=== PATIENT | female | born 1985 | race Caucasian/White ===

== ENCOUNTER → 2018-06-13 18:12 | Outpatient (CLI) | payer MEDICAID, SELFPAY ==
[2018-06-13 19:10] LABS: Basophils % 0.3 % (0.1-2.0); Eosinophils # 0.1 K/mm3 (0.0-0.4); Eosinophils % 1.5 % (0.1-12.0); Hematocrit 38.3 % (37.0-47.0); Hemoglobin 12.4 g/dL (12.2-16.2); Lymphocytes # 1.9 K/mm3 (0.7-4.5); Lymphocytes % 19.6 % (10-50); Mean Corpuscular HGB Conc 32.5 g/dL (31.8-35.4); Mean Corpuscular Hemoglobin 24.5 pg (27.0-31.2); Mean Corpuscular Volume 75.6 fl (81-99); Mean Platelet Volume 6.8 fl (7.4-10.4); Monocytes # 0.3 K/mm3 (0.1-1.0); Monocytes % 2.6 % (1.7-9.3); Neutrophils # 7.4 K/mm3 (1.8-7.8); Neutrophils % 75.9 % (37.0-80.0); Platelet Count 422 K/mm3 (142-424); Red Blood Count 5.07 M/mm3 (4.20-5.40); Red Cell Distribution Width 15.4 % (11.5-17.5); White Blood Count 9.8 K/mm3 (4.8-10.8)
[2018-06-13 19:32] LABS: Alanine Aminotransferase 25 U/L (12-78); Albumin Level 3.3 gm/dL (3.4-5.0); Albumin/Globulin Ratio 0.8 (1.1-1.8); Alkaline Phosphatase 86 U/L (46-116); Anion Gap 12.8 mEq/L (5-15); Aspartate Amino Transferase 11 U/L (15-37); Bilirubin,Total 0.3 mg/dL (0.2-1.0); Blood Urea Nitrogen 14 mg/dL (7-18); Carbon Dioxide 29 mmol/L (21.0-32.0); Chloride 100 mmol/L (98-107); Chol/HDL Ratio 3.6 (1-3.5); Cholesterol 174 mg/dL (140-200); Creatinine,Serum 0.77 mg/dL (0.55-1.02); Estimated Glomerular Filt Rate 86 ml/min (>60); GFR (African American) 104 ML/MIN (>60); Globulin 4.4 gm/dl (1.3-3.2); Glucose 121 mg/dL (74-106); HDL Cholesterol 48 mg/dL (29-89); LDL Cholesterol 90 mg/dL (0-130); Potassium 3.8 mmoL/L (3.5-5.1); Sodium 138 mmol/L (136-145); T4 (Thyroxine) 9.6 ug/dl (4.7-13.3); Total Protein,Serum 7.7 gm/dL (6.4-8.2); Triglycerides 181 mg/dL (30-200); VLDL Cholesterol 36 mg/dL (0-40)
[2018-06-15 08:19] LABS: Vitamin D 25 Hydroxy 16.9 ng/mL (30.0-100.0)
[2018-06-16 19:23] LABS: Ferritin 104 ng/mL (8-388)
[2018-06-18 06:39] LABS: Iron 39 ug/dL (27-159); UIBC 289 ug/dL (131-425)
[2018-06-18 23:01] LABS: Iron Saturation 12 % (15-55)
== END ==
PROVIDERS: Emergency Medicine; Visit Provider Physician Assistant
DX: E03.9 Hypothyroidism, unspecified (principal); R68.89 Other general symptoms and signs
CPT/HCPCS: 80053; 80061; 82652; 82728; 83540; 83550; 84436; 84443; 85025

== ENCOUNTER → 2018-06-19 17:53 | Outpatient (CLI) | payer MEDICAID, SELFPAY ==
[2018-06-19 19:33] LABS: Hemoglobin A1C 5.9 % (0.0-7.0)
== END ==
PROVIDERS: Visit Provider Emergency Medicine
DX: E66.9 Obesity, unspecified (principal); Z83.3 Family history of diabetes mellitus
CPT/HCPCS: 83036

== ENCOUNTER → 2018-07-27 11:01 | Outpatient (CLI) | payer MEDICAID, SELFPAY ==
[2018-07-27 13:07] LABS: Free Thyroxine Index 2.6 ug/dL (5.93-13.13); T4 (Thyroxine) 8.4 ug/dl (4.7-13.3); Triiodothryronine (T3) Uptake 31 % (31-39)
== END ==
PROVIDERS: Visit Provider Nurse Practitioner Obstetrics & Gynecology
DX: E03.9 Hypothyroidism, unspecified (principal)
CPT/HCPCS: 36415; 84436; 84443; 84479

== ENCOUNTER → 2018-11-01 15:40 | Outpatient (CLI) | payer MEDICAID, SELFPAY ==
[2018-11-01 16:14] LABS: Basophils % 0.4 % (0.1-2.0); Eosinophils # 0.2 K/mm3 (0.0-0.4); Hematocrit 37.4 % (37.0-47.0); Hemoglobin 12.3 g/dL (12.2-16.2); Lymphocytes # 1.7 K/mm3 (0.7-4.5); Lymphocytes % 19.8 % (10-50); Mean Corpuscular HGB Conc 32.9 g/dL (31.8-35.4); Mean Corpuscular Hemoglobin 25.7 pg (27.0-31.2); Mean Corpuscular Volume 78.2 fl (81-99); Mean Platelet Volume 6.9 fl (7.4-10.4); Monocytes # 0.2 K/mm3 (0.1-1.0); Monocytes % 2.9 % (1.7-9.3); Neutrophils # 6.3 K/mm3 (1.8-7.8); Neutrophils % 74.8 % (37.0-80.0); Platelet Count 375 K/mm3 (142-424); Red Blood Count 4.78 M/mm3 (4.20-5.40); Red Cell Distribution Width 15.2 % (11.5-17.5); White Blood Count 8.4 K/mm3 (4.8-10.8)
[2018-11-01 17:06] LABS: Hemoglobin A1C 5.9 % (0.0-7.0)
[2018-11-01 17:20] LABS: Alanine Aminotransferase 23 U/L (12-78); Albumin Level 3.1 gm/dL (3.4-5.0); Albumin/Globulin Ratio 0.7 (1.1-1.8); Alkaline Phosphatase 77 U/L (46-116); Anion Gap 13.3 mEq/L (5-15); Aspartate Amino Transferase 14 U/L (15-37); Bilirubin,Total 0.3 mg/dL (0.2-1.0); Blood Urea Nitrogen 15 mg/dL (7-18); Calcium 9.1 mg/dL (8.5-10.1); Carbon Dioxide 29 mmol/L (21.0-32.0); Chloride 101 mmol/L (98-107); Chol/HDL Ratio 3.5 (1-3.5); Cholesterol 154 mg/dL (140-200); Creatinine,Serum 0.72 mg/dL (0.55-1.02); Estimated Glomerular Filt Rate 93 ml/min (>60); GFR (African American) 112 ML/MIN (>60); Globulin 4.4 gm/dl (1.3-3.2); Glucose 137 mg/dL (74-106); HDL Cholesterol 44 mg/dL (29-89); LDL Cholesterol 88 mg/dL (0-130); Potassium 4.3 mmoL/L (3.5-5.1); Sodium 139 mmol/L (136-145); T4 (Thyroxine) 9.9 ug/dl (4.7-13.3); Thyroid Stimulating Hormone 1.89 uIU/ml (0.358-3.740); Total Protein,Serum 7.5 gm/dL (6.4-8.2); Triglycerides 112 mg/dL (30-200); VLDL Cholesterol 22 mg/dL (0-40)
[2018-11-03 11:45] LABS: Vitamin D 25 Hydroxy 33.6 ng/mL (30.0-100.0)
== END ==
PROVIDERS: Visit Provider Physician Assistant
DX: I10 Essential (primary) hypertension (principal); Z83.3 Family history of diabetes mellitus
CPT/HCPCS: 80053; 80061; 82652; 83036; 84436; 84443; 85025

== ENCOUNTER → 2018-11-29 15:35 | Outpatient (CLI) | payer MEDICAID, SELFPAY ==
[2018-11-29 22:01] LABS: Ferritin 141 ng/mL (8-388)
[2018-12-01 09:15] LABS: Iron 40 ug/dL (27-159); UIBC 291 ug/dL (131-425)
[2018-12-01 17:12] LABS: Iron Saturation 12 % (15-55)
== END ==
PROVIDERS: Visit Provider Physician Assistant
DX: D64.9 Anemia, unspecified (principal); D50.9 Iron deficiency anemia, unspecified
CPT/HCPCS: 36415; 82728; 83540; 83550

== ENCOUNTER → 2019-03-30 13:34 | Outpatient (CLI) | payer MEDICAID, SELFPAY | PROVIDERS: PCP Physician Assistant; Visit Provider Physician Assistant | DX: R40.0 Somnolence (principal); G47.33 Obstructive sleep apnea (adult) (pediatric) | CPT/HCPCS: G0399 ==

== ENCOUNTER → 2020-05-14 17:33 | Outpatient (CLI) | payer MEDICAID, SELFPAY ==
[2020-05-14 18:09] LABS: Basophils % 0.4 % (0.1-2.0); Eosinophils # 0.1 K/mm3 (0.0-0.4); Eosinophils % 1.4 % (0.1-12.0); Hematocrit 37.4 % (37.0-47.0); Hemoglobin 12.1 g/dL (12.2-16.2); Lymphocytes # 2.1 K/mm3 (0.7-4.5); Mean Corpuscular HGB Conc 32.2 g/dL (31.8-35.4); Mean Corpuscular Hemoglobin 25.3 pg (27.0-31.2); Mean Corpuscular Volume 78.5 fl (81-99); Mean Platelet Volume 7.2 fl (7.4-10.4); Monocytes # 0.4 K/mm3 (0.1-1.0); Monocytes % 3.6 % (1.7-9.3); Neutrophils # 7.4 K/mm3 (1.8-7.8); Neutrophils % 73.6 % (37.0-80.0); Platelet Count 392 K/mm3 (142-424); Red Blood Count 4.77 M/mm3 (4.20-5.40); Red Cell Distribution Width 15.9 % (11.5-17.5)
[2020-05-14 18:27] LABS: Chloride 99 mmol/L (98-107); Sodium 138 mmol/L (136-145)
[2020-05-14 18:28] LABS: Potassium 4.4 mmoL/L (3.5-5.1)
[2020-05-14 18:30] LABS: Alanine Aminotransferase 24 U/L (12-78); Alkaline Phosphatase 96 U/L (38-126); Anion Gap 13.4 mEq/L (5-15); Aspartate Amino Transferase 24 U/L (14-36); Bilirubin,Total 0.4 mg/dl (0.2-1.3); Blood Urea Nitrogen 15 mg/dl (7-17); Carbon Dioxide 30 mmol/L (22.0-30.0); Estimated Glomerular Filt Rate 82 ml/min (>60); GFR (African American) 99 ML/MIN (>60); Triglycerides 159 mg/dl (30-150); VLDL Cholesterol 32 mg/dL (0-40)
[2020-05-14 18:31] LABS: Albumin/Globulin Ratio 1.1 (1.1-1.8); Calcium 9.8 mg/dl (8.4-10.2); Chol/HDL Ratio 3.7 (1-3.5); Cholesterol 197 mg/dl (140-200); Globulin 3.8 g/dL (1.3-3.2); Glucose 122 mg/dl (74-100); HDL Cholesterol 53 mg/dl (40-60); Total Protein,Serum 7.8 g/dl (6.3-8.2)
[2020-05-14 18:47] LABS: 25-OH Vitamin D, Total 24.4 ng/mL (30-100)
[2020-05-14 19:43] LABS: Direct LDL Cholesterol 115.45 mg/dL (100-129)
[2020-05-14 19:53] LABS: Free T4 (Free Thyroxine) 1.47 ng/dl (0.78-2.19)
[2020-05-14 20:07] LABS: Thyroid Stimulating Hormone 3.81 uIU/mL (0.465-4.68)
[2020-05-14 21:18] LABS: Hemoglobin A1C 6.8 % (4.0-6.0)
== END ==
PROVIDERS: Visit Provider Physician Assistant
DX: E03.9 Hypothyroidism, unspecified (principal); E11.9 Type 2 diabetes mellitus without complications; R68.89 Other general symptoms and signs; E55.9 Vitamin D deficiency, unspecified; Z79.84 Long term (current) use of oral hypoglycemic drugs
CPT/HCPCS: 80053; 80061; 82043; 82306; 83036; 84439; 84443; 85025

== ENCOUNTER → 2020-06-02 14:43 | Outpatient (CLI) | payer MEDICAID, SELFPAY ==
--- NOTE | 2020-06-02 14:43 | US_ITS ---
PROCEDURE: US TRANSVAGINAL CLINICAL INDICATION: abnormal bleeding pelvic pain Prolonged uterine bleeding COMPARISON: CT ABDPELW/O CT ABD PELVIS W/O CONTRAST from 05/16/2016 FINDINGS: UTERUS: 8cm x 5cmx 4cm with a combined endometrial thickness of 5.8mm LEFT OVARY: [id number] with a volume of 4.1ml. RIGHT OVARY: [id number] with a volume of 3.4ml. Images are somewhat limited secondary to patient's body habitus. No cul-de-sac fluid apparent IMPRESSION: Unremarkable pelvic ultrasound. Dictated by: Trevin Pandya MD 06/03/2020 17:15 Trevin Pandya MD in [place] 06/03/2020 17:15
== END ==
PROVIDERS: PCP Physician Assistant; Visit Provider Nurse Practitioner Obstetrics & Gynecology
DX: N93.9 Abnormal uterine and vaginal bleeding, unspecified (principal); N97.0 Female infertility associated with anovulation
CPT/HCPCS: 76830

== ENCOUNTER → 2020-11-26 08:27 | Outpatient (CLI) | payer MEDICAID, SELFPAY ==
[2020-11-27 09:41] LABS: Basophils # 0.1 K/mm3 (0-0.2); Basophils % 0.8 % (0.1-2.0); Eosinophils # 0.1 K/mm3 (0.0-0.4); Eosinophils % 0.7 % (0.1-12.0); Hematocrit 37.4 % (37.0-47.0); Hemoglobin 11.2 g/dL (12.2-16.2); Lymphocytes # 1.5 K/mm3 (0.7-4.5); Lymphocytes % 14.2 % (10-50); Mean Corpuscular HGB Conc 29.9 g/dL (31.8-35.4); Mean Corpuscular Hemoglobin 25.4 pg (27.0-31.2); Mean Platelet Volume 9.8 fl (7.4-10.4); Monocytes # 0.4 K/mm3 (0.1-1.0); Monocytes % 3.9 % (1.7-9.3); Neutrophils # 8.3 K/mm3 (1.8-7.8); Neutrophils % 80.4 % (37.0-80.0); Platelet Count 405 K/mm3 (142-424); Red Blood Count 4.39 M/mm3 (4.20-5.40); Red Cell Distribution Width 17.5 % (11.5-17.5); White Blood Count 10.3 K/mm3 (4.8-10.8)
[2020-11-27 10:16] LABS: Chloride 96 mmol/L (98-107)
[2020-11-27 10:17] LABS: Sodium 140 mmol/L (136-145)
[2020-11-27 10:19] LABS: Alanine Aminotransferase 28 U/L (12-78); Alkaline Phosphatase 101 U/L (38-126); Aspartate Amino Transferase 29 U/L (14-36); Blood Urea Nitrogen 13 mg/dl (7-17); Estimated Glomerular Filt Rate 113 ml/min (>60); GFR (African American) 137 ML/MIN (>60)
[2020-11-27 10:20] LABS: Albumin Level 3.7 g/dl (3.5-5.0); Albumin/Globulin Ratio 1.1 (1.1-1.8); Calcium 9.1 mg/dl (8.4-10.2); Carbon Dioxide 28 mmol/L (22.0-30.0); Chol/HDL Ratio 3.2 (1-3.5); Cholesterol 142 mg/dl (140-200); Globulin 3.4 g/dL (1.3-3.2); Glucose 143 mg/dl (74-100); HDL Cholesterol 44 mg/dl (40-60); Iron 51 ug/dL (37-170); Total Protein,Serum 7.1 g/dl (6.3-8.2); Triglycerides 162 mg/dl (30-150); VLDL Cholesterol 32 mg/dL (0-40)
[2020-11-27 10:23] LABS: Bilirubin,Total 0.1 mg/dl (0.2-1.3)
[2020-11-27 10:31] LABS: Direct LDL Cholesterol 73.19 mg/dL (100-129)
[2020-11-27 10:35] LABS: Total Iron Binding Capacity 315 ug/dL (265-497)
[2020-11-27 10:38] LABS: T4 (Thyroxine) 10.8 ug/dl (5.53-11.0)
[2020-11-27 10:51] LABS: Thyroid Stimulating Hormone 3.31 uIU/mL (0.465-4.68)
[2020-11-27 10:55] LABS: Ferritin 95.3 ng/ml (6.24-137)
[2020-11-27 16:25] LABS: Hemoglobin A1C 7.5 % (4.0-6.0)
== END ==
PROVIDERS: Visit Provider Physician Assistant
DX: E11.9 Type 2 diabetes mellitus without complications (principal); N92.0 Excessive and frequent menstruation with regular cycle; Z79.84 Long term (current) use of oral hypoglycemic drugs
CPT/HCPCS: 80053; 80061; 82728; 83036; 83540; 83550; 84436; 84443; 85025

== ENCOUNTER → 2021-02-13 14:11 | Outpatient (CLI) | payer MEDICAID, SELFPAY ==
[2021-02-13 14:12] LABS: Influenza A, PCR Not Detected (NotDetected); Influenza B, PCR Not Detected (NotDetected)
[2021-02-13 15:50] LABS: Coronavirus 19, PCR Detected (NotDetected)
== END ==
PROVIDERS: Visit Provider Nurse Practitioner Family
DX: U07.1 COVID-19 (principal)
CPT/HCPCS: C9803; U0003; U0005

== ENCOUNTER → 2021-03-17 17:03 | Outpatient (CLI) | payer MEDICAID, SELFPAY ==
[2021-03-17 17:52] LABS: Anion Gap 11.9 mEq/L (5-15); Blood Urea Nitrogen 12 mg/dl (7-17); Calcium 9.4 mg/dl (8.4-10.2); Carbon Dioxide 31 mmol/L (22.0-30.0); Chloride 97 mmol/L (98-107); Estimated Glomerular Filt Rate 95 ml/min (>60); GFR (African American) 115 ML/MIN (>60); Glucose 169 mg/dl (74-100); Potassium 3.9 mmoL/L (3.5-5.1); Sodium 136 mmol/L (136-145)
== END ==
PROVIDERS: Visit Provider Physician Assistant
DX: Z01.818 Encounter for other preprocedural examination (principal)
CPT/HCPCS: 80048

== ENCOUNTER → 2021-03-18 14:15 | Outpatient (CLI) | payer MEDICAID, SELFPAY ==
--- NOTE | 2021-03-18 14:21 | CT_ITS ---
FINAL REPORT CLINICAL HISTORY: s/p COVID, dyspnea, elevated d dimer FINDINGS: Thin section axial CT images of the chest were obtained with contrast. 3D reformatted images were also obtained. This study was performed with techniques to keep radiation doses as low as reasonably achievable (ALARA). Individualized dose reduction techniques using automated exposure control or adjustment of mA and/or kV according to the patient's size were employed. Artifact is noted secondary to patient's body habitus. There is no evidence of pulmonary embolism. There is no evidence of thoracic aortic aneurysm or dissection. There is no evidence of mediastinal or hilar mass or adenopathy. There are mild pulmonary groundglass opacities, may represent residual pneumonia. Note is made of mild scarring. Limited images of the upper abdomen reveal the patient is status post cholecystectomy. IMPRESSION: No evidence of pulmonary embolism. Mild pulmonary groundglass opacities, may represent residual pneumonia. Reviewed, Interpreted and Dictated by Carlin Love III, MD Transcribed by Ayala Lake Authenticated by Carlin Love III, MD on 03/18/2021 04:25:[address] [facility]
== END ==
PROVIDERS: PCP Physician Assistant; Visit Provider Physician Assistant
DX: R06.00 Dyspnea, unspecified (principal)
CPT/HCPCS: 71275; Q9967

== ENCOUNTER 2021-03-20 12:49 | Emergency (ER) | payer MEDICAID, SELFPAY ==
[2021-03-20 12:50] VITALS: BP 175/88; PULSE 93; RESP 18; TEMP 36.7; O2SAT 98; BMI 71.1
--- NOTE | 2021-03-20 14:00 | ECG_ITS ---
APPROVED REPORT Exam: Resting ECG HR:73 bpm ECG Measurements Heart Rate 73 AXES [place] 171 P 32 QRSd 96 QRS 27 QT 353 T 9 QTc 378 Conclusion SINUS RHYTHM NORMAL ECG UNCONFIRMED REPORT Electronically signed by : Asa Yoon MD 03/21/2021 13:48:09
--- NOTE | 2021-03-20 14:17 | HMH.EDGENADL ---
ED Disposition Clinical Impression: Shortness of breath Hypertension Qualifiers: Hypertension type: primary hypertension Qualified Code(s): I10 - Essential (primary) hypertension Disposition: Home, Self-Care Condition on Discharge: Good Additional Instructions: Continue taking your 20 mg of lisinopril daily. Heart rate in the 50s is appropriate. Follow-up with your regular doctor as previously scheduled, and continue your doxycycline as prescribed for pneumonia. Referrals: Monique Saxena PA [Primary Care Provider] - Time of Disposition: 15:18 - Critical Care Critical Care Time: No Attestation: On 03/20/21, the high probability of a clinically significant, sudden or life threatening deterioration of the following system(s) required my full and direct attention, intervention and personal management. The time I documented below is in addition to time spent performing reported procedures but includes the following listed in this critical care notation. Medical Decision Making - Medical Records Medical records reviewed: Yes: I reviewed the patient's medical records. - [place] Inquiry Pt receiving controlled substance: No Vital Signs: 03/20/21 12:50 Temperature 98.1 F Temperature Source Oral Pulse Rate [Right Radial] 93 H Respiratory Rate 18 Blood Pressure [Right Arm] 175/88 H Blood Pressure Mean [Right Arm] 117 Blood Pressure Source [Right Arm] Automatic Cuff Blood Pressure Position [Right Arm] Sitting 02 Sat by Pulse Oximetry 98 Oxygen Delivery Method Room Air - Lab Data Lab results reviewed: Yes: I reviewed the patient's lab results. Lab Results 03/20/21 14:27: WBC 17.8 H, RBC 4.98, Hgb 12.4, Hct 39.0, MCV 78.3 L, MCH 25.0 L, MCHC 31.9, RDW 18.9 H, Plt Count 419, MPV 7.3 L, Neut % (Auto) 85.9 H, Lymph % (Auto) 9.9 L, Kings % (Auto) 3.2, Eos % (Auto) 0.4, Baso % (Auto) 0.6, Neut # (Auto) 15.3 H, Lymph # (Auto) 1.8, Kings # (Auto) 0.6, Eos # (Auto) 0.1, Baso # (Auto) 0.1, Total Counted 100, Neutrophils % (Manual) 76, Band Neutrophils % 1.0, Lymphocytes % (Manual) 21, Monocytes % (Manual) 2, Nucleated RBCs 1, Platelet Estimate Normal, Microcytosis 1+ 03/20/21 14:27: Sodium 139, Potassium 4.1, Chloride 101, Carbon Dioxide 29, Anion Gap 13.1, BUN 20 H D, Creatinine 0.80, Estimated Creat Clear 80, Estimated GFR 81, Est GFR ( Amer) 98, Glucose 88, Calcium 9.5, Total Bilirubin 0.5, AST 35, ALT 36, Alkaline Phosphatase 85, Total Protein 8.2, Albumin 4.3, Globulin 3.9 H, Albumin/Globulin Ratio 1.1 Result diagrams: 03/20/21 14:27 03/20/21 14:27 Orders (Tests/Meds): ORDERS Category Date Time Status ECG Request by /Martin Stat Y 03/20/21 13:51 Ordered Medical Decision Narrative: 35-year-old female who presents to the emergency department for evaluation of bradycardia and hypertension. Patient cut her hypertensive medication in half recently as her PCP advised it may be causing her bradycardia. Had a lengthy discussion with the patient about normal heart rate and blood pressure. I advised that a heart rate of greater than 50 is not concerning, and should not be causing her any problems, especially in the setting of hypertension rather than hypotension. Patient was advised that her lisinopril should not be affecting her heart rate. We advised her to take her second dose while in the emergency department to see if it will improve her blood pressure which has been around 180 systolic. Patient does not complain of headaches, vision changes, chest pain, or worse shortness of breath at baseline associated with this. Given that she had a negative CT PE scan yesterday, and was already started on antibiotics for pneumonia, I do not feel that an extensive work-up is warranted. We will evaluate with an ECG and basic labs including CBC and CMP and recheck her blood pressure and continue to monitor her heart rate. On reevaluation, patient was found to have a normal ECG with normal intervals and normal rhythm
[2021-03-20 14:42] LABS: Basophils # 0.1 K/mm3 (0-0.2); Basophils % 0.6 % (0.1-2.0); Eosinophils # 0.1 K/mm3 (0.0-0.4); Eosinophils % 0.4 % (0.1-12.0); Hemoglobin 12.4 g/dL (12.2-16.2); Lymphocytes # 1.8 K/mm3 (0.7-4.5); Lymphocytes % 9.9 % (10-50); Mean Corpuscular HGB Conc 31.9 g/dL (31.8-35.4); Mean Corpuscular Volume 78.3 fl (81-99); Mean Platelet Volume 7.3 fl (7.4-10.4); Monocytes # 0.6 K/mm3 (0.1-1.0); Monocytes % 3.2 % (1.7-9.3); Neutrophils # 15.3 K/mm3 (1.8-7.8); Neutrophils % 85.9 % (37.0-80.0); Platelet Count 419 K/mm3 (142-424); Red Blood Count 4.98 M/mm3 (4.20-5.40); Red Cell Distribution Width 18.9 % (11.5-17.5); White Blood Count 17.8 K/mm3 (4.8-10.8)
[2021-03-20 14:51] LABS: MANUAL DIFFERENTIAL MANUAL DIFFERENTIAL (MANUAL DIFF)
[2021-03-20 14:56] LABS: Chloride 101 mmol/L (98-107); Potassium 4.1 mmoL/L (3.5-5.1); Sodium 139 mmol/L (136-145)
[2021-03-20 14:59] LABS: Alanine Aminotransferase 36 U/L (12-78); Albumin Level 4.3 g/dl (3.5-5.0); Albumin/Globulin Ratio 1.1 (1.1-1.8); Alkaline Phosphatase 85 U/L (38-126); Anion Gap 13.1 mEq/L (5-15); Aspartate Amino Transferase 35 U/L (14-36); Bilirubin,Total 0.5 mg/dl (0.2-1.3); Blood Urea Nitrogen 20 mg/dl (7-17); Carbon Dioxide 29 mmol/L (22.0-30.0); Creatinine Clearance Estimated 80 mL/min (50-200); Estimated Glomerular Filt Rate 81 ml/min (>60); GFR (African American) 98 ML/MIN (>60); Globulin 3.9 g/dL (1.3-3.2); Total Protein,Serum 8.2 g/dl (6.3-8.2)
[2021-03-20 15:00] LABS: Calcium 9.5 mg/dl (8.4-10.2); Glucose 88 mg/dl (74-100)
[2021-03-20 15:02] LABS: Lymphocytes % 21 % (10-50); Monocytes % 2 % (2-9); Neutrophils % 76 % (42-76); Platelet Estimate Normal; Total Cells Counted 100
[2021-03-20 15:03] LABS: Microcytosis 1+; Nucleated Red Blood Cells 1
[2021-03-20 16:05] VITALS: BP 141/81; PULSE 69; RESP 16; TEMP 36.8; O2SAT 96
== END 2021-03-20 16:05 | disposition home or self-care (01) ==
PROVIDERS: Emergency Provider Emergency Medicine; PCP Physician Assistant
DX: J18.9 Pneumonia, unspecified organism (principal); I10 Essential (primary) hypertension; F41.9 Anxiety disorder, unspecified; E66.01 Morbid (severe) obesity due to excess calories; Z68.45 Body mass index [BMI] 70 or greater, adult; E10.9 Type 1 diabetes mellitus without complications; F41.8 Other specified anxiety disorders; K21.9 Gastro-esophageal reflux disease without esophagitis; Z79.899 Other long term (current) drug therapy
CPT/HCPCS: 36415; 80053; 85007; 85025; 93005; 99282

== ENCOUNTER → 2021-07-13 09:56 | Outpatient (CLI) | payer MEDICAID, SELFPAY ==
[2021-07-13 10:50] VITALS: BP 129/98; BP 157/97; PULSE 76; PULSE 85; RESP 20; O2SAT 98; O2SAT 99
== END ==
PROVIDERS: PCP Physician Assistant; Visit Provider Internal Medicine Pulmonary Disease
DX: R06.09 Other forms of dyspnea (principal)
CPT/HCPCS: 94060; 94618; 94726; 94729

== ENCOUNTER → 2021-08-27 14:16 | Outpatient (CLI) | payer MEDICAID, SELFPAY ==
[2021-08-27 14:33] LABS: Basophils # 0.1 K/mm3 (0-0.2); Basophils % 0.5 % (0.1-2.0); Eosinophils # 0.3 K/mm3 (0.0-0.4); Eosinophils % 2.5 % (0.1-12.0); Hematocrit 32.8 % (37.0-47.0); Hemoglobin 10.9 g/dL (12.2-16.2); Lymphocytes # 2.3 K/mm3 (0.7-4.5); Lymphocytes % 21.1 % (10-50); Mean Corpuscular HGB Conc 33.3 g/dL (31.8-35.4); Mean Corpuscular Hemoglobin 25.2 pg (27.0-31.2); Mean Corpuscular Volume 75.5 fl (81-99); Mean Platelet Volume 6.7 fl (7.4-10.4); Monocytes # 0.4 K/mm3 (0.1-1.0); Monocytes % 3.5 % (1.7-9.3); Neutrophils # 7.8 K/mm3 (1.8-7.8); Neutrophils % 72.4 % (37.0-80.0); Platelet Count 383 K/mm3 (142-424); Red Blood Count 4.35 M/mm3 (4.20-5.40); Red Cell Distribution Width 16.9 % (11.5-17.5); White Blood Count 10.8 K/mm3 (4.8-10.8)
[2021-08-27 15:30] LABS: Alanine Aminotransferase 61 U/L (12-78); Albumin Level 3.7 g/dl (3.5-5.0); Albumin/Globulin Ratio 1.2 (1.1-1.8); Alkaline Phosphatase 74 U/L (38-126); Anion Gap 12.1 mEq/L (5-15); Aspartate Amino Transferase 30 U/L (14-36); Blood Urea Nitrogen 15 mg/dl (7-17); Calcium 9.1 mg/dl (8.4-10.2); Carbon Dioxide 28 mmol/L (22.0-30.0); Chloride 104 mmol/L (98-107); Estimated Glomerular Filt Rate 94 ml/min (>60); GFR (African American) 114 ML/MIN (>60); Globulin 3.2 g/dL (1.3-3.2); Glucose 115 mg/dl (74-100); Magnesium 1.7 mg/dl (1.6-2.3); Potassium 4.1 mmoL/L (3.5-5.1); Sodium 140 mmol/L (136-145); Total Protein,Serum 6.9 g/dl (6.3-8.2)
[2021-08-27 15:32] LABS: Bilirubin,Total < 0.1 mg/dl (0.2-1.3)
[2021-09-03 17:09] LABS: D001-IgE D pteronyssinus <0.10 kU/L (Class 0); E001-IgE Cat Dander <0.10 kU/L (Class 0); E005-IgE Dog Dander <0.10 kU/L (Class 0); E072-IgE Mouse Urine <0.10 kU/L (Class 0); G002-IgE Bermuda Grass <0.10 kU/L (Class 0); G006-IgE Timothy Grass <0.10 kU/L (Class 0); I006-IgE Cockroach, German <0.10 kU/L (Class 0); Immunoglobulin E, Total 359 IU/mL (6-495); M001-IgE Penicillium chrysogen <0.10 kU/L (Class 0); M002-IgE Cladosporium herbarum <0.10 kU/L (Class 0); M003-IgE Aspergillus fumigatus <0.10 kU/L (Class 0); M006-IgE Alternaria alternata <0.10 kU/L (Class 0); T001-IgE Maple/Box Elder <0.10 kU/L (Class 0); T003-IgE Common Silver Birch <0.10 kU/L (Class 0); T006-IgE Cedar, Mountain <0.10 kU/L (Class 0); T007-IgE Oak, White <0.10 kU/L (Class 0); T008-IgE Elm, American <0.10 kU/L (Class 0); T010-IgE Walnut <0.10 kU/L (Class 0); T011-IgE Maple Leaf Sycamore <0.10 kU/L (Class 0); T014-IgE Cottonwood <0.10 kU/L (Class 0); T015-IgE Ash, White <0.10 kU/L (Class 0); T022-IgE Pecan, Hickory <0.10 kU/L (Class 0); T070-IgE White Mulberry <0.10 kU/L (Class 0); W001-IgE Ragweed, Short <0.10 kU/L (Class 0); W011-IgE Thistle, Russian <0.10 kU/L (Class 0); W014-IgE Pigweed, Common <0.10 kU/L (Class 0); W018-IgE Sheep Sorrel <0.10 kU/L (Class 0)
== END ==
PROVIDERS: PCP Nurse Practitioner Family; Visit Provider Internal Medicine Pulmonary Disease
DX: I10 Essential (primary) hypertension (principal)
CPT/HCPCS: 36415; 80053; 82785; 83735; 85025; 86003

== ENCOUNTER → 2021-09-18 13:29 | Outpatient (CLI) | payer MEDICAID, SELFPAY ==
--- NOTE | 2021-09-18 13:36 | US_ITS ---
FINAL REPORT CLINICAL HISTORY: abnormal uterine bleeding FINDINGS: Transvaginal sonographic images of the pelvis were obtained. The uterus measures 8.8 by 4.6 x 3.9 cm. The endometrium measures 10 mm. The right ovary measures 2.9 x 2.4 x 1.7 cm. The left ovary measures 2.4 x 2.2 x 1.7 cm. No adnexal mass is identified. There is no free fluid. IMPRESSION: Unremarkable pelvic ultrasound. Reviewed, Interpreted and Dictated by Carlin Love III, MD Transcribed by Ayala Lake Authenticated and [facility]
[2021-09-18 14:17] LABS: Basophils # 0.1 K/mm3 (0-0.2); Basophils % 0.5 % (0.1-2.0); Eosinophils # 0.2 K/mm3 (0.0-0.4); Eosinophils % 1.3 % (0.1-12.0); Hematocrit 37.2 % (37.0-47.0); Lymphocytes # 2.2 K/mm3 (0.7-4.5); Mean Corpuscular HGB Conc 32.3 g/dL (31.8-35.4); Mean Corpuscular Hemoglobin 24.7 pg (27.0-31.2); Mean Corpuscular Volume 76.4 fl (81-99); Mean Platelet Volume 6.7 fl (7.4-10.4); Monocytes # 0.3 K/mm3 (0.1-1.0); Monocytes % 2.7 % (1.7-9.3); Neutrophils # 9.3 K/mm3 (1.8-7.8); Neutrophils % 77.3 % (37.0-80.0); Platelet Count 365 K/mm3 (142-424); Red Blood Count 4.87 M/mm3 (4.20-5.40); Red Cell Distribution Width 15.9 % (11.5-17.5); White Blood Count 12.1 K/mm3 (4.8-10.8)
[2021-09-18 14:48] LABS: Thyroid Stimulating Hormone 2.58 uIU/mL (0.465-4.68)
== END ==
PROVIDERS: PCP Nurse Practitioner Family; Visit Provider Obstetrics & Gynecology
DX: N93.9 Abnormal uterine and vaginal bleeding, unspecified (principal)
CPT/HCPCS: 36415; 76830; 84443; 85025

== ENCOUNTER → 2021-10-02 13:42 | Outpatient (CLI) | payer MEDICAID, SELFPAY ==
[2021-10-02 14:17] LABS: Basophils # 0.1 K/mm3 (0-0.2); Basophils % 0.7 % (0.1-2.0); Eosinophils # 0.2 K/mm3 (0.0-0.4); Eosinophils % 1.3 % (0.1-12.0); Hematocrit 36.9 % (37.0-47.0); Hemoglobin 11.7 g/dL (12.2-16.2); Lymphocytes # 2.3 K/mm3 (0.7-4.5); Lymphocytes % 17.4 % (10-50); Mean Corpuscular HGB Conc 31.8 g/dL (31.8-35.4); Mean Corpuscular Hemoglobin 25.1 pg (27.0-31.2); Mean Corpuscular Volume 78.8 fl (81-99); Mean Platelet Volume 7.6 fl (7.4-10.4); Monocytes # 0.5 K/mm3 (0.1-1.0); Monocytes % 3.7 % (1.7-9.3); Neutrophils # 10.2 K/mm3 (1.8-7.8); Platelet Count 418 K/mm3 (142-424); Red Blood Count 4.69 M/mm3 (4.20-5.40); Red Cell Distribution Width 17.1 % (11.5-17.5); White Blood Count 13.2 K/mm3 (4.8-10.8)
== END ==
PROVIDERS: PCP Physician Assistant; Visit Provider Nurse Practitioner Obstetrics & Gynecology
DX: Z01.812 Encounter for preprocedural laboratory examination (principal); Z20.822 Contact with and (suspected) exposure to COVID-19; N92.0 Excessive and frequent menstruation with regular cycle; N93.9 Abnormal uterine and vaginal bleeding, unspecified
CPT/HCPCS: 36415; 85025; C9803; U0003; U0005

== ENCOUNTER 2021-10-05 06:06 | Day surgery (SDC) | payer MEDICAID, SELFPAY ==
[2021-10-01 10:01] VITALS: BMI 70.1
[2021-10-05] VITALS (11 sets, daily range): BP systolic 133–152; BP diastolic 53–82; PULSE 58–75; RESP 10–18; TEMP 36.2–36.4; O2SAT 92–97
[2021-10-05 06:30] LABS: Urine Pregnancy, HCG Qual. Negative (Negative)
[2021-10-05 06:52] LABS: POC Glucose,Bedside 108 (70-110)
--- NOTE | 2021-10-05 07:17 | P.PN_ITS ---
[facility] Anesthesia Checklist - Patient Identification Patient Identification: Arm Band - Structural Data Admitted From: Home Planned Operative Procedure/s: Hysteroscopy, D&C, Novasure/Myosure Ablation Consent for Planned Operative Procedure(s) Verified: Yes Verified Documents: Surgical Consent, History and Physical - NPO Status Verified Time NPO: 00:00 - Additional verifications Anesthesia Reactions: No Hx Blood Transfusions: No Blood Transfusion Reaction: No - Airway Assessment C-Spine Mobility Assessed: Yes (mp2) TMJ Mobility Assessed: Yes Dentition: Good Dentition - Neurological Assessment Level of Consciousness: Awake, Alert - Anesthesia Plan Anesthesia Risk discussed: Yes Anesthesia Plan: Verified ASA Class: III Anesthesia Type: General [facility] History I have reviewed the patient's past medical history: Yes Medical History: Reports:: Anxiety, Asthma, Depression, Diabetes Mellitus Type 2, Gastroesophageal Reflux Disease(GERD), Hypertension, Migraine Denies:: Cancer, Diabetes Mellitus Type 1, Internal Pacemaker, MRSA, Seizures *Have you ever received a pneumonia vaccine?: No *Have you received a flu vaccine this season?: Yes Other Medical History: Reports: Anemia, Sinus Problems, Thyroid Disease. Denies: Blood Transfusion Reaction Anesthesia experience/problems:: nac Laterality Cases: Bilateral: Other Other Surgeries: Yes: Cholecystectomy, , EGD, Tubal Ligation, Other. No: Pacemaker Amputation: No Fractures: No - *Social History Last grade of school completed: High school graduate Smoking Status: Never smoker Alcohol Intake: never Alcohol Intake Frequency:: other Substance Use Type: denies use *Occupational Status:: disabled Housing: apartment Household Members: family *Travel in the last 8 weeks: None - Psychiatric History Pschychiatric History:: Reports:: Anxiety, Depression Family Hx:: Diabetes, Hypertension, Heart Attack, Kidney Disease [employer] history: Additional [employer] History
--- NOTE | 2021-10-05 09:12 | P.PN_ITS ---
[facility] Anesthesia Record Part I Intake, IV Amount: 900 Estimated blood loss (mL): 5 Urine output (mL): 0 Blood Pressure: 133/65 SaO2: 96 Pulse Rate: 75 Respiratory Rate: 10 Temperature: 97.3 F Patient is:: Awake Stable to PACU at:: 09:13
--- NOTE | 2021-10-05 09:12 | HMH.OPNOTE ---
Date of procedure: 10/05/21 Pre-op Diagnosis:: 1. Encounter for gynecological examination with abnormal finding 2. Lichen sclerosus of vulva 3. Menometrorrhagia 4. Abnormal uterine bleeding 5. Morbid obesity with BMI of 60.0-69.9, adult Post-op Diagnosis:: 1. Encounter for gynecological examination with abnormal finding 2. Lichen sclerosus of vulva 3. Menometrorrhagia 4. Abnormal uterine bleeding 5. Morbid obesity with BMI of 60.0-69.9, adult 6. Endometrial polyp Procedure performed:: 1. Hysteroscopy 2. D&C with Myosure 3. Myosure polypectomy 4. Vulvar punch biopsy x 2 Surgeon:: Romina Villaseñor DO Anesthesia: FANNY Estimated blood loss (mL): 0 Clinical Note:: Ms Jane Nugent is a 36 yo P2013 who presents to [facility] for scheduled procedure. She complains of abnormal uterine bleeding. She states periods have been heavy and abnormal for a long time. She complains of bleeding for months straight. The bleeding alternates from light to heavy but only stops while taking 7 days of Norethindrone. After course of Norethindrone the bleeding returns. She is tired of bleeding. She was on Depo Provera in the past and it caused weight gain. She said she has tried combined OCPs in the past and she did not tolerate them. She admits to vulvar itching for the past year. She admits it has been getting worse over the past year. She has been prescribed fungal creams which helps a little with the itch but does get rid of the problem. Operative findings:: Unable to access pelvis on bimanual exam secondary to patient's body habitus. On hysteroscopic exam bilateral tubal ostia easily visualized. Grossly normal appearing scant endometrial tissue. Endometrial polyp present. On vulvar exam, bilateral labia majora well demarcated white wrinkled plaques that extend to outside of introitus, perineum and anus with telangiectasia and erosions. Some scarring starting with loss of archictecturel Operative note:: Risks, benefits and alternatives were discussed with the patient. Risks include but are not limited to bleeding, infection, uterine perforation and VTE. Patient voiced understanding and agreed to proceed. She was wheeled back to the operating room and placed under general anesthesia without difficulty. She was placed in dorsal lithotomy position and prepped and draped in the normal sterile fashion. Straight catheter was used to drain the bladder. A bimanual exam was performed. A weighted Auvard was placed in the vaginal vault. Single tooth tenaculum was placed on anterior lip of the cervix. Uterus sounded to 12. Sequential Jorge dilators were used to dilate the cervical os. Hysteroscope was inserted through the cervix without difficulty. Endometrial cavity was evaluated. See findings above. Pictures were taken. Myosure was inserted through the hysteroscope. Myosure curettage was performed per protocol in a 360 degree fashion under direct visualization. A scant amount of tissue was obtained. Myosure was used per protocol to form polypectomy. Pictures were taken. Hysteroscope with Myosure was removed. Cervical length was measured with removal of hysteroscope. Uterine cavity measured 4.0. Novasure inserted. Cavity width < 2.5. Novasure device unable to ablate secondary to small cavity size. Instruments were removed from the vagina. Tenaculum site was noted to be hemostatic. 4 mm punch biopsy was performed on right perineum and second 4 mm punch biopsy was performed on left labia majora. Silver nitrate was used on base of excision. 2-0 Vicryl suture was used to reapproximate the skin. Hemostasis was noted. Patient was awaken from anesthesia without difficulty. She was transported to recovery room in stable condition. Patient will be discharged home when awake and ambulating. She was given postop instructions as well as instructions to follow-up in the office in 2 weeks. Condition: stable Disposition: same day Specimens:: 1. Endometri
[2021-10-05 09:20] LABS: POC Glucose,Bedside 113 (70-110)
--- NOTE | 2021-10-05 10:17 | SUR.PHASEII ---
Pt is wanting to go home without pain medicine as Dr. Villaseñor has not returned call concerning pain medcine. Pt says pain is tolerable.
--- NOTE | 2021-10-05 13:13 | HMH.ANESII ---
[facility] Anesthesia Record Part II Discharge Time: 09:33 Destination: Surgical Day Care (OP Surgery) PACU nurse assessment reviewed?: Yes Patient Condition:: Good Anesthesia Complications:: None Swallowing reflex intact?: Yes Cyanosis?: No Blood Pressure: 133/69 Pulse Rate: 62 Temperature: 97.6 F Mental Status: Alert & Oriented Pain level:: 4 Nausea and/or vomitting:: None Intake, IV Amount: 0
== END 2021-10-05 10:27 | disposition home or self-care (01) ==
LOC: OR 06:09
PROVIDERS: PCP Physician Assistant; Visit Provider Obstetrics & Gynecology
PROC: (CPT 58558; principal; 2021-10-05 07:30)
DX: Z01.411 Encounter for gynecological examination (general) (routine) with abnormal findings (principal); N90.4 Leukoplakia of vulva; N92.1 Excessive and frequent menstruation with irregular cycle; E66.01 Morbid (severe) obesity due to excess calories; K22.81 Esophageal polyp; E11.9 Type 2 diabetes mellitus without complications; Z68.44 Body mass index [BMI] 60.0-69.9, adult; Z79.899 Other long term (current) drug therapy
CPT/HCPCS: 58558; 56605; 56606; 81025; 82962; J2405

== ENCOUNTER → 2021-10-13 06:56 | Outpatient (CLI) | payer MEDICAID, SELFPAY ==
[2021-10-13 19:14] LABS: Basophils # 0.1 K/mm3 (0-0.2); Basophils % 0.5 % (0.1-2.0); Eosinophils # 0.2 K/mm3 (0.0-0.4); Hemoglobin 11.7 g/dL (12.2-16.2); Lymphocytes # 2.5 K/mm3 (0.7-4.5); Lymphocytes % 15.7 % (10-50); Mean Corpuscular HGB Conc 31.8 g/dL (31.8-35.4); Mean Corpuscular Hemoglobin 25.3 pg (27.0-31.2); Mean Corpuscular Volume 79.7 fl (81-99); Mean Platelet Volume 7.4 fl (7.4-10.4); Monocytes # 0.5 K/mm3 (0.1-1.0); Monocytes % 3.3 % (1.7-9.3); Neutrophils # 12.4 K/mm3 (1.8-7.8); Neutrophils % 79.6 % (37.0-80.0); Platelet Count 452 K/mm3 (142-424); Red Blood Count 4.64 M/mm3 (4.20-5.40); White Blood Count 15.6 K/mm3 (4.8-10.8)
[2021-10-13 19:17] LABS: MANUAL DIFFERENTIAL MANUAL DIFFERENTIAL (MANUAL DIFF)
[2021-10-13 19:24] LABS: Alanine Aminotransferase 24 U/L (12-78); Albumin Level 3.8 g/dl (3.5-5.0); Albumin/Globulin Ratio 1.1 (1.1-1.8); Alkaline Phosphatase 110 U/L (38-126); Anion Gap 14.3 mEq/L (5-15); Aspartate Amino Transferase 22 U/L (14-36); Bilirubin,Total 0.2 mg/dl (0.2-1.3); Blood Urea Nitrogen 13 mg/dl (7-17); Calcium 9.3 mg/dl (8.4-10.2); Carbon Dioxide 30 mmol/L (22.0-30.0); Chloride 98 mmol/L (98-107); Chol/HDL Ratio 3.6 (1-3.5); Cholesterol 158 mg/dl (140-200); Estimated Glomerular Filt Rate 81 ml/min (>60); GFR (African American) 98 ML/MIN (>60); Globulin 3.4 g/dL (1.3-3.2); Glucose 68 mg/dl (74-100); HDL Cholesterol 44 mg/dl (40-60); Potassium 4.3 mmoL/L (3.5-5.1); Sodium 138 mmol/L (136-145); Total Protein,Serum 7.2 g/dl (6.3-8.2); Triglycerides 91 mg/dl (30-150); VLDL Cholesterol 18 mg/dL (0-40)
[2021-10-13 19:41] LABS: 25-OH Vitamin D, Total 61.9 ng/mL (30-100)
[2021-10-13 19:55] LABS: Thyroid Stimulating Hormone 1.79 uIU/mL (0.465-4.68)
[2021-10-13 20:14] LABS: Vitamin B12 723 pg/mL (239-931)
[2021-10-13 23:04] LABS: Eosinophils % 1 % (0-3); Lymphocytes % 16 % (10-50); Monocytes % 1 % (2-9); Neutrophils % 82 % (42-76); Total Cells Counted 100
[2021-10-13 23:05] LABS: Hypochromasia 1+; Microcytosis 1+; Platelet Estimate Slight Increase
[2021-10-15 08:46] LABS: Direct LDL Cholesterol 78 mg/dL (100-129)
== END ==
PROVIDERS: PCP Physician Assistant; Visit Provider Physician Assistant
DX: E11.9 Type 2 diabetes mellitus without complications (principal); E66.01 Morbid (severe) obesity due to excess calories; Z68.44 Body mass index [BMI] 60.0-69.9, adult; Z79.84 Long term (current) use of oral hypoglycemic drugs; Z79.899 Other long term (current) drug therapy
CPT/HCPCS: 80053; 80061; 82306; 82607; 83036; 84443; 85007; 85025

== ENCOUNTER → 2021-11-16 10:07 | Outpatient (CLI) | payer MEDICAID, SELFPAY ==
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
[2021-11-16 20:12] LABS: Basophils # 0.1 K/mm3 (0-0.2); Basophils % 0.4 % (0.1-2.0); Eosinophils # 0.1 K/mm3 (0.0-0.4); Eosinophils % 1.1 % (0.1-12.0); Hematocrit 37.7 % (37.0-47.0); Lymphocytes # 1.9 K/mm3 (0.7-4.5); Lymphocytes % 15.8 % (10-50); Mean Corpuscular HGB Conc 31.9 g/dL (31.8-35.4); Mean Corpuscular Hemoglobin 25.6 pg (27.0-31.2); Mean Corpuscular Volume 80.3 fl (81-99); Mean Platelet Volume 8.2 fl (7.4-10.4); Monocytes # 0.4 K/mm3 (0.1-1.0); Monocytes % 3.5 % (1.7-9.3); Neutrophils # 9.4 K/mm3 (1.8-7.8); Neutrophils % 79.1 % (37.0-80.0); Platelet Count 421 K/mm3 (142-424); Red Cell Distribution Width 17.2 % (11.5-17.5); White Blood Count 11.9 K/mm3 (4.8-10.8)
[2021-11-16 20:49] LABS: Alanine Aminotransferase 21 U/L (12-78); Albumin Level 3.9 g/dl (3.5-5.0); Albumin/Globulin Ratio 1.2 (1.1-1.8); Alkaline Phosphatase 112 U/L (38-126); Anion Gap 14.5 mEq/L (5-15); Aspartate Amino Transferase 20 U/L (14-36); Bilirubin,Total 0.1 mg/dl (0.2-1.3); Blood Urea Nitrogen 18 mg/dl (7-17); Calcium 9.2 mg/dl (8.4-10.2); Carbon Dioxide 32 mmol/L (22.0-30.0); Chloride 95 mmol/L (98-107); Chol/HDL Ratio 3.5 (1-3.5); Cholesterol 166 mg/dl (140-200); Estimated Glomerular Filt Rate 81 ml/min (>60); GFR (African American) 98 ML/MIN (>60); Globulin 3.2 g/dL (1.3-3.2); Glucose 111 mg/dl (74-100); HDL Cholesterol 47 mg/dl (40-60); Magnesium 1.6 mg/dl (1.6-2.3); Potassium 4.5 mmoL/L (3.5-5.1); Sodium 137 mmol/L (136-145); Total Protein,Serum 7.1 g/dl (6.3-8.2); Triglycerides 113 mg/dl (30-150); VLDL Cholesterol 23 mg/dL (0-40)
[2021-11-16 21:00] LABS: Direct LDL Cholesterol 87.73 mg/dL (100-129)
[2021-11-16 21:09] LABS: 25-OH Vitamin D, Total 30.9 ng/mL (30-100)
[2021-11-16 21:20] LABS: Thyroid Stimulating Hormone 2.69 uIU/mL (0.465-4.68)
[2021-11-16 21:39] LABS: Vitamin B12 625 pg/mL (239-931)
[2021-11-16 21:54] LABS: Hemoglobin A1C 5.5 % (4.0-6.0)
== END ==
PROVIDERS: PCP Physician Assistant; Visit Provider Physician Assistant
DX: L03.316 Cellulitis of umbilicus (principal); M79.605 Pain in left leg; I82.402 Acute embolism and thrombosis of unspecified deep veins of left lower extremity; R25.2 Cramp and spasm; R73.09 Other abnormal glucose; E66.01 Morbid (severe) obesity due to excess calories; Z68.44 Body mass index [BMI] 60.0-69.9, adult; B95.7 Other staphylococcus as the cause of diseases classified elsewhere
CPT/HCPCS: 80053; 80061; 82306; 82607; 83036; 83735; 84443; 85025; 87070; 87077; 87186; 87205; 93971

== ENCOUNTER 2021-11-27 08:43 | Emergency (ER) | payer MEDICAID, SELFPAY ==
[2021-11-27 09:22] VITALS: BP 131/79; PULSE 64; RESP 21; TEMP 37.1; O2SAT 99; BMI 63.4
--- NOTE | 2021-11-27 09:22 | EXP.UTC ---
Discharge Plan Disposition Patient Disposition: Home, Self-Care Condition: Good Prescriptions Prescriptions: No Action ketotifen fumarate 0.025 % (0.035 %) drops 1 drp OPHTHALMIC BID Label Comments: INSTILL 1 DROP IN BOTH EYES TWICE DAILY bacitracin zinc [Antibiotic (bacitracin zinc)] 500 unit/gram ointment 1 applic TP TID Qty: 14 0RF ipratropium-albuterol 0.5 mg-3 mg(2.5 mg base)/3 mL solution for nebulization 3 ml IH QID PRN (Reason: shortness of breath or wheezing) 90 Days Qty: 270 3RF Ozempic 0.25 mg or 0.5 mg(2 mg/1.5 mL) pen injector 0.25 mg SQ WEEKLY Rx Instructions: for 4 doses hydrochlorothiazide 12.5 mg tablet 12.5 mg PO DAILY Qty: 30 2RF Vraylar 1.5 mg capsule 1.5 mg PO DAILY Qty: 30 2RF albuterol sulfate 90 mcg/actuation HFA aerosol inhaler 2 puff IH Q4-6H PRN (Reason: shortness of breath or wheezing) Qty: 8.5 2RF ibuprofen 800 mg tablet 800 mg PO BID PRN (Reason: pain) 30 Days Qty: 60 2RF ferrous sulfate [FeroSul] 325 mg (65 mg iron) tablet See Rx Instructions .ROUTE .COMPLEX Qty: 180 0RF Dose Instruction: TAKE 1 TABLET BY MOUTH TWICE DAILY Rx Instructions: TAKE 1 TABLET BY MOUTH TWICE DAILY ergocalciferol (vitamin D2) 1,250 mcg (50,000 unit) capsule 1,250 mcg PO WEEKLY Qty: 14 3RF Rx Instructions: take 1 capsule by mouth every week for 90 DAYS cholecalciferol (vitamin D3) 25 mcg (1,000 unit) capsule See Rx Instructions PO DAILY Qty: 90 3RF Rx Instructions: TAKE 1 CAPSULE BY MOUTH EVERY DAY lisinopril 40 mg tablet 40 mg PO DAILY Qty: 30 2RF levothyroxine 50 mcg tablet See Rx Instructions .ROUTE .COMPLEX Qty: 90 3RF Dose Instruction: TAKE ONE TABLET BY MOUTH DAILY Rx Instructions: TAKE ONE TABLET BY MOUTH DAILY valacyclovir 500 mg tablet 500 mg PO DAILY PRN (Reason: herpes simplex) Qty: 30 1RF (DME) blood-glucose meter Kit See Rx Instructions .Route DAILY Qty: 1 0RF Rx Instructions: As directed (DME) lancets Misc See Rx Instructions .Route DAILY Qty: 100 5RF Rx Instructions: As directed (DME) blood sugar diagnostic Strip See Rx Instructions .Route DAILY Qty: 50 5RF Rx Instructions: As directed clonazepam 1 mg tablet 1 mg PO Q8H Qty: 90 0RF cyclobenzaprine 10 mg tablet 10 mg PO HS Qty: 90 0RF azithromycin [Zithromax Z-Estevan] 250 mg tablet See Rx Instructions PO .COMPLEX Qty: 6 0RF Rx Instructions: For 250 mg dose pack: take 500 mg today (day 1), then 250 mg for 4 days (days 2-5) PO minocycline 100 mg capsule 100 mg PO BID 10 Days Qty: 20 0RF fluticasone propion-salmeterol 1 EACH blister with device 1 inh IH Q12H Rx Instructions: advair 500 / 50 mcg cetirizine 10 MG tablet 10 mg PO DAILY atorvastatin 10 MG tablet 10 mg PO HS famotidine 40 MG tablet 40 mg PO DAILY clobetasol 15 GM ointment 1 applic TP HS multivitamin,[id number] 1 EACH tablet 1 tab PO DAILY triamcinolone acetonide 16.9 ML aerosol,spray 1 spray NS DAILY Referrals Follow up/Referrals: Monique Saxena PA [Primary Care Provider] - See instructions Activity Restrictions/Add. Instructions Additional Instructions/Restrictions: *Monitor Temp, Over the counter Motrin or Tylenol as directed/as needed Tylenol every 4 hours and Motrin every 6 hours (as long as your family doctor has told you that you can take it) for fever or pain. and straight to ER if unable to lower temp less than 101.0 after medication given *Warm salt water gargles may help to soothe the throat *Throat Lozenges? *Warm fluids like tea with honey may help to soothe the throat? *Sleep elevated *Humidifier/Vaporizer Follow up IMMEDIATELY for new or worsening symptoms or no Noticeable improvement over the next 48-72 hours. 911 for difficulty breathing or swallowing You were tested
[2021-11-27 09:44] VITALS: BP 131/79; PULSE 64; RESP 21; TEMP 37.1; O2SAT 99
== END 2021-11-27 09:45 | disposition home or self-care (01) ==
PROVIDERS: Emergency Provider Nurse Practitioner; PCP Physician Assistant
DX: R06.02 Shortness of breath (principal); R09.89 Other specified symptoms and signs involving the circulatory and respiratory systems; R05.9 Cough, unspecified; R11.0 Nausea; Z20.822 Contact with and (suspected) exposure to COVID-19; I10 Essential (primary) hypertension; N92.1 Excessive and frequent menstruation with irregular cycle; E03.9 Hypothyroidism, unspecified; B00.9 Herpesviral infection, unspecified; M79.10 Myalgia, unspecified site; F43.10 Post-traumatic stress disorder, unspecified; F41.9 Anxiety disorder, unspecified; Z79.1 Long term (current) use of non-steroidal anti-inflammatories (NSAID); Z79.51 Long term (current) use of inhaled steroids; Z79.899 Other long term (current) drug therapy; Z88.2 Allergy status to sulfonamides; Z88.8 Allergy status to other drugs, medicaments and biological substances; Z91.040 Latex allergy status; Z83.3 Family history of diabetes mellitus
CPT/HCPCS: 99212; C9803; G0463; U0003; U0005

== ENCOUNTER → 2021-12-25 11:35 | Outpatient (CLI) | payer MEDICAID, SELFPAY ==
--- NOTE | 2021-12-25 11:54 | XR_ITS ---
FINAL REPORT CLINICAL HISTORY: cough, wheezing, SOB COMPARISON: 12/04/2021 FINDINGS: Two views of the chest were obtained. There is cardiomegaly. The mediastinum is normal. No acute pulmonary abnormality is identified. There is no pneumothorax. The bony thorax is intact. IMPRESSION: No active cardiopulmonary disease. Reviewed, Interpreted and Dictated by Carlin Love III, MD Transcribed by Su Cardoso Authenticated and [facility]
[2021-12-25 13:48] LABS: Adenovirus,PCR Not Detected (NotDetected); Bordetella Pertussis Not Detected (NotDetected); Chlamydophila Pneumoniae, PCR Not Detected (NotDetected); Coronavirus 19, PCR Not Detected (NotDetected); Coronavirus 229E Not Detected (NotDetected); Coronavirus NL63 Not Detected (NotDetected); Coronavirus OC43 Not Detected (NotDetected); Coronovirus HKU1,PCR Not Detected (NotDetected); Human Metapneumovirus Not Detected (NotDetected); Influenza A, PCR Not Detected (NotDetected); Influenza AH1, 2009 Not Detected (NotDetected); Influenza AH1, PCR Not Detected (NotDetected); Influenza AH3,PCR Not Detected (NotDetected); Influenza B, PCR Not Detected (NotDetected); Mycoplasma Pneumoniae, PCR Not Detected (NotDetected); Parainfluenza 1, PCR Not Detected (NotDetected); Parainfluenza 2, PCR Not Detected (NotDetected); Parainfluenza 3, PCR Not Detected (NotDetected); Respiratory Syncytial Virus Not Detected (NotDetected); Rhinovirus/Enterovirus Not Detected (NotDetected)
[2021-12-25 21:21] LABS: Parainfluenza 4, PCR Detected (NotDetected)
== END ==
PROVIDERS: PCP Physician Assistant; Visit Provider Student in an Organized Health Care Education/Training Program
DX: Z20.822 Contact with and (suspected) exposure to COVID-19 (principal); R06.02 Shortness of breath; R05.9 Cough, unspecified; J32.9 Chronic sinusitis, unspecified; J20.4 Acute bronchitis due to parainfluenza virus
CPT/HCPCS: 71046; 87581; 87632; 87798; C9803; U0003; U0005

== ENCOUNTER → 2021-12-29 12:40 | Outpatient (CLI) | payer MEDICAID, SELFPAY ==
[2021-12-29 13:18] LABS: Basophils # 0.1 K/mm3 (0-0.2); Basophils % 0.5 % (0.1-2.0); Eosinophils # 0.2 K/mm3 (0.0-0.4); Eosinophils % 1.5 % (0.1-12.0); Hemoglobin 11.8 g/dL (12.2-16.2); Lymphocytes # 2.3 K/mm3 (0.7-4.5); Lymphocytes % 17.2 % (10-50); Mean Corpuscular HGB Conc 32.8 g/dL (31.8-35.4); Mean Corpuscular Hemoglobin 25.5 pg (27.0-31.2); Mean Corpuscular Volume 77.6 fl (81-99); Mean Platelet Volume 7.3 fl (7.4-10.4); Monocytes # 0.3 K/mm3 (0.1-1.0); Monocytes % 2.4 % (1.7-9.3); Neutrophils # 10.6 K/mm3 (1.8-7.8); Neutrophils % 78.4 % (37.0-80.0); Platelet Count 424 K/mm3 (142-424); Red Blood Count 4.64 M/mm3 (4.20-5.40); White Blood Count 13.5 K/mm3 (4.8-10.8)
[2021-12-29 14:00] LABS: Alanine Aminotransferase 26 U/L (12-78); Albumin Level 3.7 g/dl (3.5-5.0); Albumin/Globulin Ratio 1.2 (1.1-1.8); Alkaline Phosphatase 115 U/L (38-126); Anion Gap 12.8 mEq/L (5-15); Aspartate Amino Transferase 21 U/L (14-36); Bilirubin,Total 0.2 mg/dl (0.2-1.3); Blood Urea Nitrogen 19 mg/dl (7-17); Calcium 9.5 mg/dl (8.4-10.2); Carbon Dioxide 33 mmol/L (22.0-30.0); Chloride 96 mmol/L (98-107); Estimated Glomerular Filt Rate 94 ml/min (>60); GFR (African American) 114 ML/MIN (>60); Glucose 179 mg/dl (74-100); Potassium 3.8 mmoL/L (3.5-5.1); Sodium 138 mmol/L (136-145); Total Protein,Serum 6.7 g/dl (6.3-8.2)
== END ==
PROVIDERS: PCP Physician Assistant; Visit Provider Nurse Practitioner Family
DX: I10 Essential (primary) hypertension (principal); E11.9 Type 2 diabetes mellitus without complications; Z79.84 Long term (current) use of oral hypoglycemic drugs
CPT/HCPCS: 36415; 80053; 85025

== ENCOUNTER → 2022-02-03 08:05 | Outpatient (CLI) | payer MEDICAID, SELFPAY | PROVIDERS: PCP Physician Assistant; Visit Provider Internal Medicine Pulmonary Disease | DX: R06.09 Other forms of dyspnea (principal) | CPT/HCPCS: 94060; 94726; 94729 ==

== ENCOUNTER → 2022-02-17 17:09 | Outpatient (CLI) | payer MEDICAID, SELFPAY | PROVIDERS: PCP Physician Assistant; Visit Provider Physician Assistant | DX: Q89.9 Congenital malformation, unspecified (principal); B95.7 Other staphylococcus as the cause of diseases classified elsewhere | CPT/HCPCS: 87070; 87077; 87186; 87205 ==

== ENCOUNTER → 2022-04-22 11:54 | Outpatient (CLI) | payer MEDICAID, SELFPAY ==
[2022-04-22 14:25] LABS: Basophils # 0.1 K/mm3 (0-0.2); Basophils % 0.4 % (0.1-2.0); Eosinophils # 0.3 K/mm3 (0.0-0.4); Eosinophils % 2.4 % (0.1-12.0); Hematocrit 38.9 % (37.0-47.0); Hemoglobin 12.5 g/dL (12.2-16.2); Lymphocytes # 2.2 K/mm3 (0.7-4.5); Lymphocytes % 16.4 % (10-50); Mean Corpuscular HGB Conc 32.2 g/dL (31.8-35.4); Mean Corpuscular Hemoglobin 25.8 pg (27.0-31.2); Mean Corpuscular Volume 80.3 fl (81-99); Mean Platelet Volume 7.8 fl (7.4-10.4); Monocytes # 0.5 K/mm3 (0.1-1.0); Monocytes % 3.8 % (1.7-9.3); Neutrophils # 10.1 K/mm3 (1.8-7.8); Neutrophils % 76.8 % (37.0-80.0); Platelet Count 451 K/mm3 (142-424); Red Blood Count 4.84 M/mm3 (4.20-5.40); Red Cell Distribution Width 17.1 % (11.5-17.5); White Blood Count 13.1 K/mm3 (4.8-10.8)
[2022-04-22 15:06] LABS: Alanine Aminotransferase 23 U/L (12-78); Albumin Level 4.2 g/dl (3.5-5.0); Albumin/Globulin Ratio 1.2 (1.1-1.8); Alkaline Phosphatase 94 U/L (38-126); Anion Gap 6.1 mEq/L (5-15); Aspartate Amino Transferase 23 U/L (14-36); Bilirubin,Total 0.8 mg/dl (0.2-1.3); Blood Urea Nitrogen 17 mg/dl (7-17); Calcium 9.6 mg/dl (8.4-10.2); Carbon Dioxide 32 mmol/L (22.0-30.0); Chloride 102 mmol/L (98-107); Chol/HDL Ratio 3.1 (1-3.5); Cholesterol 185 mg/dl (140-200); Estimated Glomerular Filt Rate 81 ml/min (>60); GFR (African American) 98 ML/MIN (>60); Globulin 3.5 g/dL (1.3-3.2); Glucose 98 mg/dl (74-100); HDL Cholesterol 60 mg/dl (40-60); Potassium 4.1 mmoL/L (3.5-5.1); Sodium 136 mmol/L (136-145); Total Protein,Serum 7.7 g/dl (6.3-8.2); Triglycerides 127 mg/dl (30-150); VLDL Cholesterol 25 mg/dL (0-40)
[2022-04-22 15:24] LABS: 25-OH Vitamin D, Total 37.2 ng/mL (30-100)
[2022-04-22 15:39] LABS: Thyroid Stimulating Hormone 2.45 uIU/mL (0.465-4.68)
[2022-04-22 16:50] LABS: Hemoglobin A1C 5.8 % (4.0-6.0)
== END ==
PROVIDERS: PCP Physician Assistant; Visit Provider Physician Assistant
DX: R73.03 Prediabetes (principal); R10.11 Right upper quadrant pain; E66.01 Morbid (severe) obesity due to excess calories; Z68.44 Body mass index [BMI] 60.0-69.9, adult; Z79.899 Other long term (current) drug therapy
CPT/HCPCS: 80053; 80061; 82306; 83036; 84443; 85025

== ENCOUNTER → 2022-06-07 16:27 | Outpatient (CLI) | payer MEDICAID, SELFPAY ==
[2022-06-07 17:04] LABS: Basophils # 0.1 K/mm3 (0-0.2); Basophils % 0.4 % (0.1-2.0); Eosinophils # 0.3 K/mm3 (0.0-0.4); Hematocrit 36.9 % (37.0-47.0); Hemoglobin 12.1 g/dL (12.2-16.2); Lymphocytes # 2.4 K/mm3 (0.7-4.5); Lymphocytes % 18.3 % (10-50); Mean Corpuscular HGB Conc 32.8 g/dL (31.8-35.4); Mean Corpuscular Hemoglobin 25.8 pg (27.0-31.2); Mean Corpuscular Volume 78.9 fl (81-99); Mean Platelet Volume 7.1 fl (7.4-10.4); Monocytes # 0.3 K/mm3 (0.1-1.0); Monocytes % 2.6 % (1.7-9.3); Neutrophils # 10.3 K/mm3 (1.8-7.8); Neutrophils % 76.8 % (37.0-80.0); Platelet Count 393 K/mm3 (142-424); Red Blood Count 4.68 M/mm3 (4.20-5.40); Red Cell Distribution Width 16.9 % (11.5-17.5); White Blood Count 13.4 K/mm3 (4.8-10.8)
[2022-06-10 22:35] LABS: D001-IgE D pteronyssinus 0.24 kU/L (Class 0/I); D002-IgE D farinae 0.23 kU/L (Class 0/I); E001-IgE Cat Dander <0.10 kU/L (Class 0); E005-IgE Dog Dander <0.10 kU/L (Class 0); E072-IgE Mouse Urine <0.10 kU/L (Class 0); G002-IgE Bermuda Grass <0.10 kU/L (Class 0); G006-IgE Timothy Grass <0.10 kU/L (Class 0); I006-IgE Cockroach, German 0.16 kU/L (Class 0/I); Immunoglobulin E, Total 485 IU/mL (6-495); M001-IgE Penicillium chrysogen <0.10 kU/L (Class 0); M002-IgE Cladosporium herbarum <0.10 kU/L (Class 0); M003-IgE Aspergillus fumigatus <0.10 kU/L (Class 0); M006-IgE Alternaria alternata <0.10 kU/L (Class 0); T001-IgE Maple/Box Elder <0.10 kU/L (Class 0); T003-IgE Common Silver Birch <0.10 kU/L (Class 0); T006-IgE Cedar, Mountain <0.10 kU/L (Class 0); T007-IgE Oak, White 0.11 kU/L (Class 0/I); T008-IgE Elm, American <0.10 kU/L (Class 0); T010-IgE Walnut <0.10 kU/L (Class 0); T011-IgE Maple Leaf Sycamore <0.10 kU/L (Class 0); T014-IgE Cottonwood 0.15 kU/L (Class 0/I); T015-IgE Ash, White <0.10 kU/L (Class 0); T022-IgE Pecan, Hickory <0.10 kU/L (Class 0); T070-IgE White Mulberry <0.10 kU/L (Class 0); W001-IgE Ragweed, Short <0.10 kU/L (Class 0); W011-IgE Thistle, Russian <0.10 kU/L (Class 0); W014-IgE Pigweed, Common <0.10 kU/L (Class 0); W018-IgE Sheep Sorrel <0.10 kU/L (Class 0)
== END ==
PROVIDERS: PCP Physician Assistant; Visit Provider Internal Medicine Pulmonary Disease
DX: J45.909 Unspecified asthma, uncomplicated (principal)
CPT/HCPCS: 36415; 82785; 85025; 86003

== ENCOUNTER → 2022-06-10 12:25 | Outpatient (CLI) | payer MEDICAID, SELFPAY ==
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
== END ==
PROVIDERS: PCP Physician Assistant; Visit Provider Physician Assistant
DX: M25.512 Pain in left shoulder (principal)
CPT/HCPCS: 73221

== ENCOUNTER 2022-06-13 14:11 | Emergency (ER) | payer MEDICAID, SELFPAY ==
[2022-06-13 14:15] VITALS: BP 147/84; PULSE 74; RESP 18; TEMP 36.7; O2SAT 98; BMI 71.6
--- NOTE | 2022-06-13 14:22 | EXP.UTC ---
Discharge Plan Disposition Patient Disposition: Home, Self-Care Condition: Good Prescriptions Prescriptions: New acyclovir 800 mg tablet 800 mg PO 5XDAY 7 Days Qty: 35 0RF Rx Instructions: while awake; give 5 doses in 24 hours No Action levalbuterol tartrate 45 mcg/actuation HFA aerosol inhaler 2 puff inhalation Q4-6H PRN metformin 500 mg tablet 500 mg PO DAILY albuterol sulfate 90 mcg/actuation HFA aerosol inhaler 2 inh inhalation Q6H PRN (Reason: shortness of breath or wheezing) 90 Days Qty: 8.5 1RF ipratropium-albuterol 0.5 mg-3 mg(2.5 mg base)/3 mL solution for nebulization 3 ml inhalation Q6H PRN (Reason: shortness of breath or wheezing) Qty: 180 3RF fluticasone propion-salmeterol [Advair Diskus] 500-50 mcg/dose blister with device 1 inh inhalation BID Qty: 180 3RF Spiriva with HandiHaler 18 mcg capsule, w/inhalation device 1 cap inhalation DAILY 90 Days Qty: 90 3RF Rx Instructions: puncture 1 cap using device; one dose = 2 inhalations montelukast 10 mg tablet 10 mg PO DAILY 90 Days Qty: 90 3RF ipratropium-albuterol 0.5 mg-3 mg(2.5 mg base)/3 mL solution for nebulization 3 ml IH QID PRN (Reason: shortness of breath or wheezing) 90 Days Qty: 270 3RF valacyclovir 500 mg tablet 500 mg PO PRN Label Comments: TAKE 1 TABLET BY MOUTH DAILY NEEDED FOR HERPES SIMPLEX fluticasone propionate [Flonase Allergy Relief] 50 mcg/actuation spray,suspension 1 spray intranasal BID 30 Days Qty: 9.9 0RF Rx Instructions: administer into each nostril levothyroxine 50 mcg tablet See Rx Instructions .ROUTE .COMPLEX Qty: 90 3RF Dose Instruction: TAKE ONE TABLET BY MOUTH DAILY Rx Instructions: TAKE ONE TABLET BY MOUTH DAILY (DME) blood-glucose meter Kit See Rx Instructions .Route DAILY Qty: 1 0RF Rx Instructions: As directed (DME) lancets Misc See Rx Instructions .Route DAILY Qty: 100 5RF Rx Instructions: As directed (DME) blood sugar diagnostic Strip See Rx Instructions .Route DAILY Qty: 50 5RF Rx Instructions: As directed ferrous sulfate [FeroSul] 325 mg (65 mg iron) tablet See Rx Instructions .ROUTE .COMPLEX Qty: 180 0RF Dose Instruction: TAKE 1 TABLET BY MOUTH TWICE DAILY Rx Instructions: TAKE 1 TABLET BY MOUTH TWICE DAILY (DME) FreeStyle [place] 2 [place] Misc See Rx Instructions .Route Qty: 1 0RF Rx Instructions: As directed (DME) FreeStyle [place]elle 14 Day Sensor Kit See Rx Instructions .Route Qty: 1 5RF Rx Instructions: As directed Ozempic 0.25 mg or 0.5 mg(2 mg/1.5 mL) pen injector 0.5 mg SQ WEEKLY Qty: 1.5 2RF ondansetron 8 mg tablet,disintegrating 8 mg PO Q12H 10 Days Qty: 20 0RF lisinopril 30 mg tablet See Rx Instructions .ROUTE .COMPLEX Qty: 30 0RF Dose Instruction: TAKE 1 TABLET BY MOUTH DAILY Rx Instructions: TAKE 1 TABLET BY MOUTH DAILY nystatin 100,000 unit/gram cream 1 applic topical TID Qty: 30 1RF famotidine 40 mg tablet See Rx Instructions .ROUTE .COMPLEX Qty: 90 0RF Dose Instruction: TAKE 1 TABLET BY MOUTH DAILY Rx Instructions: TAKE 1 TABLET BY MOUTH DAILY multivitamin with iron Tablet See Rx Instructions .ROUTE .COMPLEX Qty: 30 0RF Dose Instruction: TAKE 1 TABLET BY MOUTH EVERY DAY Rx Instructions: TAKE 1 TABLET BY MOUTH EVERY DAY ibuprofen 800 mg tablet See Rx Instructions .ROUTE .COMPLEX Qty: 60 0RF Dose Instruction: TAKE 1 TABLET BY MOUTH TWICE DAILY NEEDED FOR PAIN Rx Instructions: TAKE 1 TABLET BY MOUTH TWICE DAILY NEEDED FOR PAIN hydrochlorothiazide 12.5 mg tablet See Rx Instructions .ROUTE .COMPLEX Qty: 30 0RF Dose Instruction: TAKE 1 TABLET BY MOUTH DAILY Rx Instructions: TAKE 1 TABLET BY MOUTH DAILY clonazepam 1 mg tablet 1 mg PO Q8H Qty: 90 0RF cetirizine 10 MG tablet 10 mg PO D
[2022-06-13 14:26] VITALS: BP 147/84; PULSE 74; RESP 18; TEMP 36.7; O2SAT 98
== END 2022-06-13 14:47 | disposition home or self-care (01) ==
PROVIDERS: Emergency Provider Nurse Practitioner; PCP Physician Assistant
DX: B02.9 Zoster without complications (principal); I10 Essential (primary) hypertension; E03.9 Hypothyroidism, unspecified; E11.9 Type 2 diabetes mellitus without complications; Z79.84 Long term (current) use of oral hypoglycemic drugs; E66.01 Morbid (severe) obesity due to excess calories; Z68.44 Body mass index [BMI] 60.0-69.9, adult
CPT/HCPCS: 99212; 99214; G0463

== ENCOUNTER → 2022-06-15 23:23 | Outpatient (CLI) | payer MEDICAID, SELFPAY ==
[2022-06-15 18:44] LABS: Basophils # 0.1 K/mm3 (0-0.2); Basophils % 0.5 % (0.1-2.0); Eosinophils # 0.1 K/mm3 (0.0-0.4); Eosinophils % 1.2 % (0.1-12.0); Hematocrit 40.4 % (37.0-47.0); Lymphocytes # 2.1 K/mm3 (0.7-4.5); Lymphocytes % 17.3 % (10-50); Mean Corpuscular HGB Conc 32.1 g/dL (31.8-35.4); Mean Corpuscular Volume 80.8 fl (81-99); Mean Platelet Volume 8.6 fl (7.4-10.4); Monocytes # 0.5 K/mm3 (0.1-1.0); Monocytes % 4.4 % (1.7-9.3); Neutrophils # 9.2 K/mm3 (1.8-7.8); Neutrophils % 76.6 % (37.0-80.0); Platelet Count 356 K/mm3 (142-424); Red Cell Distribution Width 16.9 % (11.5-17.5); White Blood Count 12.1 K/mm3 (4.8-10.8)
[2022-06-15 19:06] LABS: Alanine Aminotransferase 21 U/L (12-78); Albumin Level 4.1 g/dl (3.5-5.0); Albumin/Globulin Ratio 1.2 (1.1-1.8); Alkaline Phosphatase 97 U/L (38-126); Anion Gap 15.1 mEq/L (5-15); Aspartate Amino Transferase 23 U/L (14-36); Bilirubin,Total 0.5 mg/dl (0.2-1.3); Blood Urea Nitrogen 16 mg/dl (7-17); Carbon Dioxide 30 mmol/L (22.0-30.0); Chloride 95 mmol/L (98-107); Chol/HDL Ratio 3.4 (1-3.5); Cholesterol 165 mg/dl (140-200); Estimated Glomerular Filt Rate 81 ml/min (>60); GFR (African American) 98 ML/MIN (>60); Globulin 3.4 g/dL (1.3-3.2); Glucose 92 mg/dl (74-100); HDL Cholesterol 49 mg/dl (40-60); Potassium 4.1 mmoL/L (3.5-5.1); Sodium 136 mmol/L (136-145); Total Protein,Serum 7.5 g/dl (6.3-8.2); Triglycerides 150 mg/dl (30-150); VLDL Cholesterol 30 mg/dL (0-40)
[2022-06-15 19:18] LABS: Direct LDL Cholesterol 86.07 mg/dL (100-129)
[2022-06-15 19:40] LABS: Thyroid Stimulating Hormone 2.55 uIU/mL (0.465-4.68)
[2022-06-15 19:49] LABS: Hemoglobin A1C 5.9 % (4.0-6.0)
[2022-06-16 18:12] LABS: 25-OH Vitamin D, Total 25.3 ng/mL (30-100)
== END ==
PROVIDERS: PCP Physician Assistant; Visit Provider Physician Assistant
DX: E03.9 Hypothyroidism, unspecified (principal); E11.9 Type 2 diabetes mellitus without complications; E55.9 Vitamin D deficiency, unspecified; Z79.84 Long term (current) use of oral hypoglycemic drugs; Z79.899 Other long term (current) drug therapy
CPT/HCPCS: 80053; 80061; 82306; 83036; 84443; 85025

== ENCOUNTER → 2022-06-21 12:19 | Outpatient (CLI) | payer MEDICAID, SELFPAY ==
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
== END ==
PROVIDERS: PCP Physician Assistant; Visit Provider Physician Assistant
DX: M25.512 Pain in left shoulder (principal)
CPT/HCPCS: 73200

== ENCOUNTER → 2022-07-09 10:22 | Outpatient (CLI) | payer MEDICAID, SELFPAY ==
--- NOTE | 2022-07-09 10:28 | XR_ITS ---
FINAL REPORT CLINICAL HISTORY: Pt recently had an MRI and CT of her shoulder, pt states her Dr now wants an XR since she never had one. FINDINGS: Left shoulder THREE VIEW FINDINGS: Three views show no evidence of an acute, displaced fracture or dislocation of the visualized bony architecture. The joint spaces appear normal. IMPRESSION: Unremarkable exam. Authenticated and [facility]N
== END ==
PROVIDERS: PCP Physician Assistant; Visit Provider Orthopaedic Surgery
DX: M25.512 Pain in left shoulder (principal)
CPT/HCPCS: 73030

== ENCOUNTER → 2022-07-15 09:16 | Outpatient (CLI) | payer MEDICAID, SELFPAY ==
[2022-07-15 09:47] LABS: Basophils # 0.1 K/mm3 (0-0.2); Basophils % 0.5 % (0.1-2.0); Eosinophils # 0.2 K/mm3 (0.0-0.4); Eosinophils % 1.6 % (0.1-12.0); Hematocrit 37.8 % (37.0-47.0); Hemoglobin 12.1 g/dL (12.2-16.2); Lymphocytes # 2.1 K/mm3 (0.7-4.5); Lymphocytes % 16.7 % (10-50); Mean Corpuscular HGB Conc 32.1 g/dL (31.8-35.4); Mean Corpuscular Hemoglobin 25.4 pg (27.0-31.2); Mean Corpuscular Volume 79.2 fl (81-99); Mean Platelet Volume 7.5 fl (7.4-10.4); Monocytes # 0.4 K/mm3 (0.1-1.0); Monocytes % 2.8 % (1.7-9.3); Neutrophils # 9.6 K/mm3 (1.8-7.8); Neutrophils % 78.3 % (37.0-80.0); Platelet Count 442 K/mm3 (142-424); Red Blood Count 4.78 M/mm3 (4.20-5.40); Red Cell Distribution Width 16.9 % (11.5-17.5); White Blood Count 12.3 K/mm3 (4.8-10.8)
[2022-07-15 10:16] LABS: C-Reactive Protein 31.5 mg/L (0-4)
[2022-07-15 13:07] LABS: Erythrocyte Sedimentation Rate 96 mm/hr (0-20)
== END ==
PROVIDERS: PCP Physician Assistant; Visit Provider Internal Medicine Medical Oncology
DX: D72.829 Elevated white blood cell count, unspecified (principal)
CPT/HCPCS: 36415; 85025; 85651; 86140

== ENCOUNTER → 2022-07-23 13:05 | Outpatient (CLI) | payer MEDICAID, SELFPAY ==
[2022-07-23 15:21] LABS: Iron 50 ug/dL (37-170)
[2022-07-23 15:30] LABS: Total Iron Binding Capacity 304 ug/dL (265-497)
[2022-07-23 15:57] LABS: Ferritin 156 ng/ml (6.24-137)
== END ==
PROVIDERS: PCP Physician Assistant; Visit Provider Internal Medicine Medical Oncology
DX: D50.9 Iron deficiency anemia, unspecified (principal)
CPT/HCPCS: 36415; 82728; 83540; 83550

== ENCOUNTER → 2022-08-18 14:53 | Outpatient (CLI) | payer MEDICAID, SELFPAY ==
[2022-08-18 18:48] LABS: Basophils % 0.3 % (0.1-2.0); Eosinophils # 0.2 K/mm3 (0.0-0.4); Eosinophils % 1.3 % (0.1-12.0); Hematocrit 36.5 % (37.0-47.0); Hemoglobin 11.9 g/dL (12.2-16.2); Lymphocytes % 16.9 % (10-50); Mean Corpuscular HGB Conc 32.7 g/dL (31.8-35.4); Mean Corpuscular Hemoglobin 25.8 pg (27.0-31.2); Mean Corpuscular Volume 78.9 fl (81-99); Mean Platelet Volume 8.4 fl (7.4-10.4); Monocytes # 0.4 K/mm3 (0.1-1.0); Neutrophils # 9.4 K/mm3 (1.8-7.8); Neutrophils % 78.4 % (37.0-80.0); Platelet Count 384 K/mm3 (142-424); Red Blood Count 4.62 M/mm3 (4.20-5.40); Red Cell Distribution Width 16.9 % (11.5-17.5)
[2022-08-18 18:52] LABS: Alanine Aminotransferase 26 U/L (12-78); Albumin/Globulin Ratio 1.3 (1.1-1.8); Alkaline Phosphatase 87 U/L (38-126); Anion Gap 16.4 mEq/L (5-15); Aspartate Amino Transferase 25 U/L (14-36); Bilirubin,Total 0.4 mg/dl (0.2-1.3); Blood Urea Nitrogen 15 mg/dl (7-17); Calcium 9.1 mg/dl (8.4-10.2); Carbon Dioxide 31 mmol/L (22.0-30.0); Chloride 98 mmol/L (98-107); Estimated Glomerular Filt Rate 94 ml/min (>60); GFR (African American) 113 ML/MIN (>60); Globulin 3.1 g/dL (1.3-3.2); Glucose 140 mg/dl (74-100); Potassium 4.4 mmoL/L (3.5-5.1); Sodium 141 mmol/L (136-145); Total Protein,Serum 7.1 g/dl (6.3-8.2)
[2022-08-18 18:57] LABS: C-Reactive Protein 38.1 mg/L (0-4)
[2022-08-18 19:12] LABS: Erythrocyte Sedimentation Rate 69 mm/hr (0-20)
[2022-08-18 19:22] LABS: Hemoglobin A1C 6.2 % (4.0-6.0)
[2022-08-18 19:23] LABS: Thyroid Stimulating Hormone 2.05 uIU/mL (0.465-4.68)
[2022-08-20 12:16] LABS: RA Latex Turbid. 11.2 IU/mL (<14.0)
[2022-08-20 13:12] LABS: Anti-Cyclic Citrullinated Pept 4 units (0-19)
[2022-08-20 20:04] LABS: Anti-Centromere B Antibodies <0.2 AI (0.0-0.9); Anti-DNA (DS) Ab Qn 1 IU/mL (0-9); Anti-Jo-1 <0.2 AI (0.0-0.9); Anti-Smith Antibody <0.2 AI (0.0-0.9); Antichromatin Antibodies <0.2 AI (0.0-0.9); Antiscleroderma-70 Antibodies <0.2 AI (0.0-0.9); RNP Antibodies <0.2 AI (0.0-0.9); Sjogren's Anti-SS-A <0.2 AI (0.0-0.9); Sjogren's Anti-SS-B <0.2 AI (0.0-0.9)
== END ==
PROVIDERS: PCP Physician Assistant; Visit Provider Physician Assistant
DX: R79.82 Elevated C-reactive protein (CRP) (principal)
CPT/HCPCS: 80053; 83036; 84443; 85025; 85651; 86140; 86200; 86225; 86235; 86431

== ENCOUNTER → 2022-09-15 14:25 | Outpatient (CLI) | payer MEDICAID, SELFPAY ==
[2022-09-15 18:09] LABS: Adenovirus,PCR Not Detected (NotDetected); Bordetella Pertussis Not Detected (NotDetected); Chlamydophila Pneumoniae, PCR Not Detected (NotDetected); Coronavirus 19, PCR Not Detected (NotDetected); Coronavirus 229E Not Detected (NotDetected); Coronavirus NL63 Not Detected (NotDetected); Coronavirus OC43 Not Detected (NotDetected); Coronovirus HKU1,PCR Not Detected (NotDetected); Human Metapneumovirus Not Detected (NotDetected); Influenza A, PCR Not Detected (NotDetected); Influenza AH1, 2009 Not Detected (NotDetected); Influenza AH1, PCR Not Detected (NotDetected); Influenza AH3,PCR Not Detected (NotDetected); Influenza B, PCR Not Detected (NotDetected); Mycoplasma Pneumoniae, PCR Not Detected (NotDetected); Parainfluenza 1, PCR Not Detected (NotDetected); Parainfluenza 2, PCR Not Detected (NotDetected); Parainfluenza 3, PCR Not Detected (NotDetected); Parainfluenza 4, PCR Not Detected (NotDetected); Respiratory Syncytial Virus Not Detected (NotDetected); Rhinovirus/Enterovirus Not Detected (NotDetected)
== END ==
PROVIDERS: PCP Student in an Organized Health Care Education/Training Program; Visit Provider Student in an Organized Health Care Education/Training Program
DX: R06.02 Shortness of breath (principal); R09.89 Other specified symptoms and signs involving the circulatory and respiratory systems; R05.9 Cough, unspecified; J32.9 Chronic sinusitis, unspecified
CPT/HCPCS: 87581; 87632; 87798

== ENCOUNTER → 2022-11-08 23:18 | Outpatient (CLI) | payer MEDICAID, SELFPAY | PROVIDERS: PCP Student in an Organized Health Care Education/Training Program; Visit Provider Student in an Organized Health Care Education/Training Program | DX: J02.9 Acute pharyngitis, unspecified (principal); B95.4 Other streptococcus as the cause of diseases classified elsewhere | CPT/HCPCS: 87070; 87077; 87186; 87635 ==

== ENCOUNTER → 2022-12-13 23:46 | Outpatient (CLI) | payer MEDICAID, SELFPAY ==
[2022-12-13 18:18] LABS: Chloride 98 mmol/L (98-107); Sodium 137 mmol/L (136-145)
[2022-12-13 18:20] LABS: Blood Urea Nitrogen 17 mg/dl (7-17); Estimated Glomerular Filt Rate 94 ml/min (>60); GFR (African American) 113 ML/MIN (>60)
[2022-12-13 18:21] LABS: Alanine Aminotransferase 23 U/L (12-78); Albumin Level 3.7 g/dl (3.5-5.0); Albumin/Globulin Ratio 1.1 (1.1-1.8); Alkaline Phosphatase 104 U/L (38-126); Aspartate Amino Transferase 20 U/L (14-36); Bilirubin,Total 0.3 mg/dl (0.2-1.3); Calcium 8.9 mg/dl (8.4-10.2); Carbon Dioxide 30 mmol/L (22.0-30.0); Cholesterol 148 mg/dl (140-200); Globulin 3.5 g/dL (1.3-3.2); Glucose 122 mg/dl (74-100); Iron 49 ug/dL (37-170); Total Protein,Serum 7.2 g/dl (6.3-8.2); Triglycerides 99 mg/dl (30-150); VLDL Cholesterol 20 mg/dL (0-40)
[2022-12-13 18:22] LABS: Chol/HDL Ratio 3.2 (1-3.5); HDL Cholesterol 46 mg/dl (40-60)
[2022-12-13 18:34] LABS: Direct LDL Cholesterol 75.92 mg/dL (100-129)
[2022-12-13 18:35] LABS: Total Iron Binding Capacity 323 ug/dL (265-497)
[2022-12-13 18:38] LABS: 25-OH Vitamin D, Total 39.1 ng/mL (30-100)
[2022-12-13 18:40] LABS: Basophils % 0.4 % (0.1-2.0); Eosinophils # 0.2 K/mm3 (0.0-0.4); Eosinophils % 1.3 % (0.1-12.0); Hematocrit 35.4 % (37.0-47.0); Hemoglobin 12.2 g/dL (12.2-16.2); Lymphocytes % 16.1 % (10-50); Mean Corpuscular HGB Conc 34.3 g/dL (31.8-35.4); Mean Corpuscular Hemoglobin 27.3 pg (27.0-31.2); Mean Corpuscular Volume 79.4 fl (81-99); Mean Platelet Volume 8.7 fl (7.4-10.4); Monocytes # 0.4 K/mm3 (0.1-1.0); Monocytes % 3.4 % (1.7-9.3); Neutrophils # 9.7 K/mm3 (1.8-7.8); Neutrophils % 78.8 % (37.0-80.0); Platelet Count 350 K/mm3 (142-424); Red Blood Count 4.47 M/mm3 (4.20-5.40); Red Cell Distribution Width 17.6 % (11.5-17.5); White Blood Count 12.3 K/mm3 (4.8-10.8)
[2022-12-13 18:54] LABS: Thyroid Stimulating Hormone 2.93 uIU/mL (0.465-4.68)
[2022-12-13 18:57] LABS: Ferritin 177 ng/ml (6.24-137)
== END ==
PROVIDERS: PCP Student in an Organized Health Care Education/Training Program; Visit Provider Physician Assistant
DX: D50.9 Iron deficiency anemia, unspecified (principal); E11.9 Type 2 diabetes mellitus without complications; Z68.44 Body mass index [BMI] 60.0-69.9, adult; Z79.84 Long term (current) use of oral hypoglycemic drugs
CPT/HCPCS: 80053; 80061; 82306; 82728; 83036; 83540; 83550; 84443; 85025

== ENCOUNTER → 2022-12-27 10:16 | Outpatient (CLI) | payer MEDICAID, SELFPAY ==
--- NOTE | 2022-12-27 10:24 | XR_ITS ---
FINAL REPORT CLINICAL HISTORY: cough x 3 weeks question pneumonia COMPARISON: 12/25/2021 FINDINGS: 2 views of the chest were obtained . The heart is normal in size. The mediastinum is within normal limits. The lungs are clear. There is no pneumothorax. Osseous structures are unremarkable. IMPRESSION: No acute cardiopulmonary process. Reviewed, Interpreted and Dictated by Carlin Love III, MD Transcribed by Marifer Taveras Authenticated and [facility]
== END ==
PROVIDERS: PCP Physician Assistant; Visit Provider Student in an Organized Health Care Education/Training Program
DX: R05.9 Cough, unspecified (principal); J02.9 Acute pharyngitis, unspecified
CPT/HCPCS: 71046; 87070

== ENCOUNTER → 2022-12-27 20:33 | Outpatient (CLI) | payer MEDICAID, SELFPAY | PROVIDERS: PCP Student in an Organized Health Care Education/Training Program; Visit Provider Student in an Organized Health Care Education/Training Program | DX: R05.9 Cough, unspecified (principal) ==

== ENCOUNTER 2023-03-14 18:15 | Outpatient (CLI) | payer MEDICAID, SELFPAY ==
[2023-03-14 19:09] LABS: Barbiturates Screen,Urine Negative ng/ml (<200)
[2023-03-14 19:10] LABS: Benzodiazepines Screen,Urine Negative ng/ml (<200)
[2023-03-14 19:11] LABS: Amphetamine/Metha Screen,Urine Negative ng/ml (<1000); Methadone Screen,Urine Negative ng/ml (<300)
[2023-03-14 19:12] LABS: Cannabinoid Screen,Urine Negative ng/ml (<50)
[2023-03-14 19:13] LABS: Cocaine Screen,Urine Negative ng/ml (<300)
[2023-03-14 19:14] LABS: Opiate Screen,Urine Negative ng/ml (<300); Phencyclidine Screen,Urine Negative ng/ml (<25)
[2023-03-18 03:36] LABS: Alprazolam Negative (Cutoff=100); Benzodiazepines Positive ng/mL (Cutoff=100); Clonazepam Positive (.); Clonazepam Confirm 254 ng/mL (Cutoff=100); Flurazepam Negative (Cutoff=100); Lorazepam Negative (Cutoff=100); Midazolam Negative (Cutoff=100); Temazepam Negative (Cutoff=100); Triazolam Negative (Cutoff=100)
== END 2023-03-14 23:59 ==
LOC: LAB.DROPOF 18:16
PROVIDERS: PCP Physician Assistant; Visit Provider Physician Assistant
DX: Z79.899 Other long term (current) drug therapy (principal); F41.9 Anxiety disorder, unspecified
CPT/HCPCS: 80307; 80346

== ENCOUNTER 2023-03-17 19:49 | Outpatient (CLI) | payer MEDICAID, SELFPAY ==
[2023-03-17 19:17] LABS: Adenovirus,PCR Not Detected (NotDetected); Coronavirus 19, PCR Not Detected (NotDetected); Coronavirus 229E Not Detected (NotDetected); Coronavirus NL63 Not Detected (NotDetected); Coronavirus OC43 Not Detected (NotDetected); Coronovirus HKU1,PCR Not Detected (NotDetected); Human Metapneumovirus Not Detected (NotDetected); Influenza A, PCR Not Detected (NotDetected); Influenza AH1, 2009 Not Detected (NotDetected); Influenza AH1, PCR Not Detected (NotDetected); Influenza AH3,PCR Not Detected (NotDetected); Influenza B, PCR Not Detected (NotDetected); Parainfluenza 1, PCR Not Detected (NotDetected); Parainfluenza 2, PCR Not Detected (NotDetected); Parainfluenza 3, PCR Not Detected (NotDetected); Parainfluenza 4, PCR Not Detected (NotDetected); Respiratory Syncytial Virus Not Detected (NotDetected); Rhinovirus/Enterovirus Not Detected (NotDetected)
== END 2023-03-17 23:59 ==
LOC: LAB.DROPOF 19:50
PROVIDERS: PCP Student in an Organized Health Care Education/Training Program; Visit Provider Student in an Organized Health Care Education/Training Program
DX: J02.9 Acute pharyngitis, unspecified (principal); R05.9 Cough, unspecified; R51.9 Headache, unspecified; R09.89 Other specified symptoms and signs involving the circulatory and respiratory systems; Z20.828 Contact with and (suspected) exposure to other viral communicable diseases
CPT/HCPCS: 87070; 87632; 87635

== ENCOUNTER 2023-04-26 12:32 | Outpatient (CLI) | payer MEDICAID, SELFPAY ==
[2023-04-25 17:49] LABS: Adenovirus,PCR Not Detected (NotDetected); Coronavirus 19, PCR Not Detected (NotDetected); Coronavirus NL63 Not Detected (NotDetected); Coronavirus OC43 Not Detected (NotDetected); Coronovirus HKU1,PCR Not Detected (NotDetected); Human Metapneumovirus Not Detected (NotDetected); Influenza A, PCR Not Detected (NotDetected); Influenza AH1, 2009 Not Detected (NotDetected); Influenza AH1, PCR Not Detected (NotDetected); Influenza AH3,PCR Not Detected (NotDetected); Influenza B, PCR Not Detected (NotDetected); Parainfluenza 1, PCR Not Detected (NotDetected); Parainfluenza 2, PCR Not Detected (NotDetected); Parainfluenza 3, PCR Not Detected (NotDetected); Parainfluenza 4, PCR Not Detected (NotDetected); Respiratory Syncytial Virus Not Detected (NotDetected); Rhinovirus/Enterovirus Not Detected (NotDetected)
[2023-04-25 22:46] LABS: Coronavirus 229E Detected (NotDetected)
== END 2023-04-26 23:59 ==
LOC: LAB.DROPOF 12:33
PROVIDERS: PCP Student in an Organized Health Care Education/Training Program; Visit Provider Student in an Organized Health Care Education/Training Program
DX: R05.9 Cough, unspecified (principal); B97.29 Other coronavirus as the cause of diseases classified elsewhere
CPT/HCPCS: 87070; 87632; 87635

== ENCOUNTER 2023-05-17 21:26 | Outpatient (CLI) | payer MEDICAID, SELFPAY ==
[2023-05-17 18:19] LABS: Adenovirus,PCR Not Detected (NotDetected); Coronavirus 19, PCR Not Detected (NotDetected); Coronavirus 229E Not Detected (NotDetected); Coronavirus NL63 Not Detected (NotDetected); Coronavirus OC43 Not Detected (NotDetected); Coronovirus HKU1,PCR Not Detected (NotDetected); Human Metapneumovirus Not Detected (NotDetected); Influenza A, PCR Not Detected (NotDetected); Influenza AH1, 2009 Not Detected (NotDetected); Influenza AH1, PCR Not Detected (NotDetected); Influenza AH3,PCR Not Detected (NotDetected); Influenza B, PCR Not Detected (NotDetected); Parainfluenza 1, PCR Not Detected (NotDetected); Parainfluenza 2, PCR Not Detected (NotDetected); Parainfluenza 4, PCR Not Detected (NotDetected); Respiratory Syncytial Virus Not Detected (NotDetected); Rhinovirus/Enterovirus Not Detected (NotDetected)
[2023-05-18 00:37] LABS: Parainfluenza 3, PCR Detected (NotDetected)
== END 2023-05-17 23:59 ==
LOC: LAB.DROPOF 21:26
PROVIDERS: PCP Student in an Organized Health Care Education/Training Program; Visit Provider Student in an Organized Health Care Education/Training Program
DX: J12.2 Parainfluenza virus pneumonia (principal); R05.9 Cough, unspecified; R51.9 Headache, unspecified; Z20.828 Contact with and (suspected) exposure to other viral communicable diseases; H92.09 Otalgia, unspecified ear; R06.02 Shortness of breath; R07.0 Pain in throat
CPT/HCPCS: 87070; 87581; 87632; 87635; 87798

== ENCOUNTER 2023-06-09 18:00 | Outpatient (CLI) | payer MEDICAID, SELFPAY ==
[2023-06-09 18:33] LABS: Basophils % 0.4 % (0.1-2.0); Eosinophils # 0.1 K/mm3 (0.0-0.4); Eosinophils % 1.2 % (0.1-12.0); Hematocrit 39.2 % (37.0-47.0); Hemoglobin 12.7 g/dL (12.2-16.2); Lymphocytes # 1.6 K/mm3 (0.7-4.5); Lymphocytes % 16.2 % (10-50); Mean Corpuscular HGB Conc 32.4 g/dL (31.8-35.4); Mean Corpuscular Hemoglobin 26.2 pg (27.0-31.2); Mean Corpuscular Volume 80.9 fl (81-99); Mean Platelet Volume 8.3 fl (7.4-10.4); Monocytes # 0.4 K/mm3 (0.1-1.0); Monocytes % 3.8 % (1.7-9.3); Neutrophils # 7.5 K/mm3 (1.8-7.8); Neutrophils % 78.2 % (37.0-80.0); Platelet Count 398 K/mm3 (142-424); Red Blood Count 4.84 M/mm3 (4.20-5.40); Red Cell Distribution Width 17.4 % (11.5-17.5); White Blood Count 9.6 K/mm3 (4.8-10.8)
[2023-06-09 18:35] LABS: Alanine Aminotransferase 40 U/L (12-78); Albumin Level 4.1 g/dl (3.5-5.0); Albumin/Globulin Ratio 1.3 (1.1-1.8); Alkaline Phosphatase 83 U/L (38-126); Anion Gap 12.3 mEq/L (5-15); Aspartate Amino Transferase 30 U/L (14-36); Bilirubin,Total 0.6 mg/dl (0.2-1.3); Blood Urea Nitrogen 14 mg/dl (7-17); Calcium 9.8 mg/dl (8.4-10.2); Carbon Dioxide 30 mmol/L (22.0-30.0); Chloride 101 mmol/L (98-107); Chol/HDL Ratio 5.6 (1-3.5); Cholesterol 173 mg/dl (140-200); Estimated Glomerular Filt Rate 94 ml/min (>60); GFR (African American) 113 ML/MIN (>60); Globulin 3.1 g/dL (1.3-3.2); Glucose 184 mg/dl (74-100); HDL Cholesterol 31 mg/dl (40-60); Potassium 4.3 mmoL/L (3.5-5.1); Sodium 139 mmol/L (136-145); Total Protein,Serum 7.2 g/dl (6.3-8.2); Triglycerides 159 mg/dl (30-150); VLDL Cholesterol 32 mg/dL (0-40)
[2023-06-09 18:44] LABS: Hemoglobin A1C 7.1 % (4.0-6.0)
[2023-06-09 18:46] LABS: Direct LDL Cholesterol 99.31 mg/dL (100-129)
[2023-06-09 19:04] LABS: Thyroid Stimulating Hormone 2.03 uIU/mL (0.465-4.68)
== END 2023-06-09 23:59 | disposition home or self-care (01) ==
LOC: LAB.DROPOF 06-10 09:04
PROVIDERS: PCP Physician Assistant; Visit Provider Physician Assistant
DX: E11.9 Type 2 diabetes mellitus without complications (principal); E66.01 Morbid (severe) obesity due to excess calories; Z68.44 Body mass index [BMI] 60.0-69.9, adult; I10 Essential (primary) hypertension; E03.9 Hypothyroidism, unspecified; Z79.899 Other long term (current) drug therapy
CPT/HCPCS: 80053; 80061; 82306; 83036; 84443; 85025

== ENCOUNTER 2023-06-27 15:01 | Outpatient (CLI) | payer MEDICAID, SELFPAY ==
[2023-06-27 18:10] LABS: Adenovirus,PCR Not Detected (NotDetected); Coronavirus 19, PCR Not Detected (NotDetected); Coronavirus 229E Not Detected (NotDetected); Coronavirus NL63 Not Detected (NotDetected); Coronavirus OC43 Not Detected (NotDetected); Coronovirus HKU1,PCR Not Detected (NotDetected); Influenza A, PCR Not Detected (NotDetected); Influenza AH1, 2009 Not Detected (NotDetected); Influenza AH1, PCR Not Detected (NotDetected); Influenza AH3,PCR Not Detected (NotDetected); Influenza B, PCR Not Detected (NotDetected); Parainfluenza 1, PCR Not Detected (NotDetected); Parainfluenza 2, PCR Not Detected (NotDetected); Parainfluenza 3, PCR Not Detected (NotDetected); Parainfluenza 4, PCR Not Detected (NotDetected); Respiratory Syncytial Virus Not Detected (NotDetected); Rhinovirus/Enterovirus Not Detected (NotDetected)
[2023-06-29 11:05] LABS: Human Metapneumovirus Detected (NotDetected)
--- OUTSIDE RECORDS SUMMARY | 2023-06-29 15:05 | XMS_ITS | Continuity of Care Document ---
Author Name Unknown Address [address] [facility] [place] SAUNDERS [id number] Organization [facility] Phone Care Team Providers Care Cmo Name Role Phone NICANOR DUNHAM Unavailable NICANOR DUNHAM Primary Attending NICANOR DUNHAM Admitting Adam ATKINS Primary Care ALLERGIES AND ADVERSE REACTIONS ALLERGIES AND ADVERSE REACTIONS Code System Allergy Substance Adverse Reaction Date Reaction (Severity) Comment Status Reported By Updated By TETANUS TOXOIDS Adverse reaction to substance u active [id number] on May 14, 2022 1:51:50 AM UTC LATEX (Free Text Allergy) Rash active [id number] on May 14, 2022 1:51:50 AM UTC 53731 RXNorm BACTRIM Rash active [id number] on May 14, 2022 1:51:50 AM UTC 37996 RXNorm LEVAQUIN Adverse reaction to substance u active [id number] on May 14, 2022 1:51:50 AM UTC Tessalon Perles (Free Text Allergy) Adverse reaction to substance Not Specified active [id number] on May 14, 2022 1:51:50 AM UTC 98529 RXNorm TESSALON Adverse reaction to substance Not Specified active [id number] on May 14, 2022 1:51:50 AM UTC FAMILY HISTORY RELATION: Father Status: LIVING SNOMED-CT Diagnosis Age At Onset [id number] Diabetes mellitus [id number] Essential hypertension [id number] Heart disease RELATION: Mother Status: Cause of : Cerebrovascular accident Age at : Unknown SNOMED-CT Diagnosis Age At Onset [id number] Heart disease [id number] Essential hypertension [id number] Diabetes mellitus RESULTS Patient: MAXIMINO Dyson Date of : 1985 LABORATORY RESULTS Information is not available LABORATORY NARRATIVE RESULTS Information is not available RADIOLOGY RESULTS ORDER 100: CT SINUSES WO ( INC: [id number]) ORDER DATE: February 25, 2023 7:07:00 PM [facility] PERFORMING LAB: [address] [id number] Final Result Date: February 25, 2023 9:12:[address] Sa[place] [address] Name: EMIL STANTON Exam Date: 02/25/2023 : 1985 Age 37 years Gender: F Physician: NICANOR DUNHAM Facility: [facility] Facility HSV: Outpatient Exam: CT SINUSES WO CT scan of the paranasal sinuses. HISTORY: Chronic sinusitis with multiple sinus infections. PROCEDURE: Axial and coronal images through the paranasal sinuses were obtained by computed tomography.This study was performed with techniques to keep radiation doses as low as reasonably achievable, (ALARA). FINDINGS: There is mucoperiosteal thickening of the paranasal sinuses. No air-fluid levels are identified. Nasal septum is minimally deviated to the right. Left ostiomeatal unit is partially occluded by soft tissue density. Vanessa bullosa is identified in the left middle turbinate. Orbits are unremarkable. IMPRESSION: Sinus disease as above. Images reviewed, interpreted and dictated by Dr. Askew. Transcribed by Eliceo Rossi PA-C Dictated By: JOSHUA ASKEW Transcribed By: JOSHUA ASKEW Transcribed On: 02/25/2023 4:12 PM Electronically signed by: JOSHUA ASKEW 02/25/2023 Thank you for referring EMIL STANTON to [facility]. Legally authenticated by POPE JOSHUA Layne DO 2023-02-25 16:12:55 PATHOLOGY NARRATIVE RESULTS Information is not available MICROBIOLOGY RESULTS No Micro Labs/Results Exist for Patient BLOOD ADMIN RESULTS Information is not available MEDICATIONS HOME MEDICATIONS Status RXNORM Medication Dose Route Frequency Dates Comments R eported By Updated By Drug Treatment Unknown DISCHARGE MEDICATIONS Status RXNORM Medication Dose Route Frequency Dates Comments Physic david Updated By No Discharge Medication Info rmation Available INPATIENT MEDICATIONS Status RXNORM Medication Dose Route Frequency Rate Quantity Dates Comments Physician Updated By No Inpatient Medication Info rmation Available SOCIAL HISTORY SOCIAL HISTORY SNOMED-CT Social History Element Description Effective Dates Offered Cessation Comment UpdatedBy [id number] Historical Tobacco smoking status Never Smoked [id number] on February 21, 2021 3:32:36 AM [place] SOCIAL HISTORY - Gender Sex: Female SOCIAL HISTORY - Sexual Behavior Sexual Orientation Gender Identity SNOMED-CT Description SNO MED -CT Description Activity Level No of Partners Partner Type UpdatedBy Information is not available HEALTH CONCERNS Problems Concern Status Health Concern problem infor mation not available. Smoking Status Status Years Used Consumed packs p er day Health Concern smoking histo ry information not available. Family History Concern Status Health Concern family histor y information not available. ENCOUNTERS ENCOUNTER INFORMATION Reason for Visit Not Specified Admission February 25, 2023 6:56:[address] [address] Discharge February 25, 2023 11:56:00 PM [place] C DISCHARGED TO HOME OR SELF CARE ENCOUNTER DIAGNOSES Notes information is not antonio ilable. Code System Diagnosis Onset Date Diagnosis information is not available. ABSTRACT DIAGNOSES Code System Diagnosis Updated By J32.9 ICD10 CHRONIC SINUSITIS, UNSPECIFI ED [id number] on February 23, 2023 3:42:57 PM [facility] CARE TEAM Care Cmo Role NICANOR DUNHAM Referring NICANOR DUNHAM Primary Attending NICANOR DUNHAM Admitting D MILLY Primary Care CARE TEAM CARE pharmaceutical service representative Role on Team Status Start Date End Date Update d By MILLY RILEY PCP normal January 3:42:57 PM [place] February 25, 2023 11:56:00 PM [facility] [id number] on February 23, 2023 3:42:57 PM [facility] CHARLA De Jesus Referring normal February 23, 2023 3:42:57 PM [place] February 25, 2023 11:56:00 PM [facility] [id number] on February 23, 2023 3:42:57 PM [facility] CHARLA De Jesus Attending normal February 23, 2023 3:42:57 PM [place] February 25, 2023 11:56:00 PM [facility] [id number] on February 23, 2023 3:42:57 PM [facility] CHARLA De Jesus Admitting normal February 23, 2023 3:42:57 PM [facility] February 25, 2023 11:56:00 PM [facility] [id number] on February 23, 2023 3:42:57 PM [facility]
--- OUTSIDE RECORDS SUMMARY | 2023-06-29 15:05 | XMS_ITS | Continuity of Care Document ---
Author Name Unknown Address [address] [facility] [place] [id number] Organization [facility] Phone Care Team Providers Care Senior Hr Generalist Name Role Phone NICANOR DUNHAM Unavailable NICANOR DUNHAM Primary Attending NICNAOR DUNHAM Admitting Adam ATKINS Primary Care ALLERGIES AND ADVERSE REACTIONS ALLERGIES AND ADVERSE REACTIONS Code System Allergy Substance Adverse Reaction Date Reaction (Severity) Comment Status Reported By Updated By TETANUS TOXOIDS Adverse reaction to substance u active [id number] on May 14, 2022 1:51:50 AM UTC LATEX (Free Text Allergy) Rash active [id number] on May 14, 2022 1:51:50 AM UTC 50210 RXNorm BACTRIM Rash active [id number] on May 14, 2022 1:51:50 AM UTC 81297 RXNorm LEVAQUIN Adverse reaction to substance u active [id number] on May 14, 2022 1:51:50 AM UTC Tessalon Perles (Free Text Allergy) Adverse reaction to substance Not Specified active [id number] on May 14, 2022 1:51:50 AM UTC 87248 RXNorm TESSALON Adverse reaction to substance Not Specified active [id number] on May 14, 2022 1:51:50 AM UTC FAMILY HISTORY RELATION: Father Status: LIVING SNOMED-CT Diagnosis Age At Onset [id number] Diabetes mellitus [id number] Essential hypertension 62233511 Heart disease RELATION: Mother Status: Cause of : Cerebrovascular accident Age at : Unknown SNOMED-CT Diagnosis Age At Onset [id number] Heart disease 62289984 Essential hypertension 80659736 Diabetes mellitus RESULTS Patient: MAXIMINO Dyson Date of : 1985 LABORATORY RESULTS Information is not available LABORATORY NARRATIVE RESULTS Information is not available RADIOLOGY RESULTS ORDER 100: CT SINUSES WO ( INC: [id number]) ORDER DATE: February 25, 2023 7:07:00 PM [facility] PERFORMING LAB: [address] [id number] Final Result Date: February 25, 2023 9:12:[address] Saunders [place] [address] Name: EMIL STANTON Exam Date: 02/25/2023 : 1985 Age 37 years Gender: F Physician: NICANOR DUNHAM Facility: [facility] Facility HSV: Outpatient Exam: CT SINUSES WO [...] Thank you for referring EMIL STANTON to [facility]. Legally authenticated by POPE JOSHUA Layne [...] Description Effective Dates Offered Cessation Comment UpdatedBy [id number] Historical Tobacco smoking status Never Smoked [id number] on February 21, 2021 3:32:36 AM UT [...] Specified Admission February 25, 2023 6:56:[address] [address] Discharge February 25, 2023 11:56:00 PM [place] DISCHARGED TO HOME OR SELF CARE ENCOUNTER DIAGNOSES Notes information is not antonio ilable. Code System Diagnosis Onset Date Diagnosis information is not available. ABSTRACT DIAGNOSES Code System Diagnosis Updated By J32.9 ICD10 CHRONIC SINUSITIS, UNSPECIFI ED [id number] on March 01, 2023 3:01:44 PM [facility] J32.9 ICD10 CHRONIC SINUSITIS, UNSPECIFI ED [id number] on March 01, 2023 3:01:44 PM [facility] CARE TEAM Care Senior Hr Generalist Role NICANOR DUNHAM Referring NICANOR DUNHAM Primary Attending NICANOR DUNHAM Admitting D MILLY Primary Care CARE TEAM CARE plasma specialist Role on Team Status Start Date End Date Update d By MILLY RILEY PCP normal January 3:42:57 PM [facility] February 25, 2023 5:00:00 AM [facility] [id number] on February 23, 2023 3:42:57 PM [facility] CHARLA De Jesus Referring normal February 23, 2023 3:42:57 PM [facility] February 25, 2023 5:00:00 AM [facility] [id number] on February 23, 2023 3:42:57 PM [facility] CHARLA De Jesus Attending normal February 23, 2023 3:42:57 PM [facility] February 25, 2023 5:00:00 AM [facility] [id number] on February 23, 2023 3:42:57 PM [facility] CHARLA De Jesus Admitting normal February 23, 2023 3:42:57 PM [facility] February 25, 2023 5:00:00 AM [facility] [id number] on February 23, 2023 3:42:57 PM [facility]
== END 2023-06-27 23:59 | disposition home or self-care (01) ==
LOC: LAB.DROPOF 06-29 15:03
PROVIDERS: PCP Student in an Organized Health Care Education/Training Program; Visit Provider Student in an Organized Health Care Education/Training Program
DX: R05.9 Cough, unspecified (principal); J02.9 Acute pharyngitis, unspecified; R09.89 Other specified symptoms and signs involving the circulatory and respiratory systems; R06.2 Wheezing; B97.81 Human metapneumovirus as the cause of diseases classified elsewhere
CPT/HCPCS: 87581; 87632; 87635; 87798

== ENCOUNTER 2023-08-29 16:22 | Outpatient (CLI) | payer MEDICAID, SELFPAY ==
[2023-08-29 17:18] LABS: Basophils # 0.1 K/mm3 (0-0.2); Basophils % 0.5 % (0.1-2.0); Eosinophils # 0.1 K/mm3 (0.0-0.4); Eosinophils % 1.1 % (0.1-12.0); Hemoglobin 12.4 g/dL (12.2-16.2); Lymphocytes # 2.2 K/mm3 (0.7-4.5); Lymphocytes % 17.7 % (10-50); Mean Corpuscular HGB Conc 32.5 g/dL (31.8-35.4); Mean Corpuscular Hemoglobin 25.6 pg (27.0-31.2); Mean Corpuscular Volume 78.7 fl (81-99); Monocytes # 0.4 K/mm3 (0.1-1.0); Monocytes % 3.3 % (1.7-9.3); Neutrophils # 9.6 K/mm3 (1.8-7.8); Neutrophils % 77.4 % (37.0-80.0); Platelet Count 390 K/mm3 (142-424); Red Blood Count 4.83 M/mm3 (4.20-5.40); Red Cell Distribution Width 17.6 % (11.5-17.5); White Blood Count 12.5 K/mm3 (4.8-10.8)
[2023-08-29 17:44] LABS: Alanine Aminotransferase 21 U/L (12-78); Albumin Level 3.8 g/dl (3.5-5.0); Albumin/Globulin Ratio 1.1 (1.1-1.8); Alkaline Phosphatase 87 U/L (38-126); Anion Gap 12.9 mEq/L (5-15); Aspartate Amino Transferase 22 U/L (14-36); Bilirubin,Total 0.4 mg/dl (0.2-1.3); Blood Urea Nitrogen 17 mg/dl (7-17); Calcium 9.4 mg/dl (8.4-10.2); Carbon Dioxide 34 mmol/L (22.0-30.0); Chloride 96 mmol/L (98-107); Estimated Glomerular Filt Rate 93 ml/min (>60); GFR (African American) 113 ML/MIN (>60); Globulin 3.4 g/dL (1.3-3.2); Glucose 131 mg/dl (74-100); Magnesium 1.6 mg/dl (1.6-2.3); Potassium 3.9 mmoL/L (3.5-5.1); Sodium 139 mmol/L (136-145); Total Protein,Serum 7.2 g/dl (6.3-8.2)
[2023-08-29 18:18] LABS: Thyroid Stimulating Hormone 2.84 uIU/mL (0.465-4.68)
[2023-08-29 18:37] LABS: Vitamin B12 577 pg/mL (239-931)
[2023-08-29 23:00] LABS: Ferritin 147 ng/ml (6.24-137)
== END 2023-08-29 23:59 | disposition home or self-care (01) ==
LOC: LAB 16:23
PROVIDERS: PCP Physician Assistant; Visit Provider Physician Assistant
DX: R00.2 Palpitations (principal); Z68.44 Body mass index [BMI] 60.0-69.9, adult; E66.9 Obesity, unspecified
CPT/HCPCS: 36415; 80050; 80053; 82607; 82728; 83735; 84443; 85025; 93225; 93227

== ENCOUNTER 2023-09-09 15:00 | Outpatient (CLI) | payer MEDICAID, SELFPAY | END 2023-09-09 23:59 | disposition home or self-care (01) | LOC: RT 15:01 | PROVIDERS: PCP Physician Assistant; Visit Provider Physician Assistant | DX: I49.3 Ventricular premature depolarization (principal) | CPT/HCPCS: 93270 ==

== ENCOUNTER 2023-10-07 14:10 | Outpatient (CLI) | payer MEDICAID, SELFPAY ==
--- NOTE | 2023-10-07 14:11 | US_ITS ---
PROCEDURE INFORMATION: Exam: US Left Breast, Complete Exam date and time: 10/07/2023 2:22 PM Age: 38 years old Clinical indication: Breast pain; Left; Additional info: Breast pain/lump left breast TECHNIQUE: Imaging protocol: Complete ultrasound of all four quadrants of the left breast and the retroareolar regions, including ultrasound of the axilla when performed. COMPARISON: No relevant prior studies available. FINDINGS: ULTRASOUND: Breast ultrasound findings: Sonographic images of the left breast including the retroareolar region, all 4 quadrants and the axilla do not demonstrate any solid or cystic masses. This is with particular attention to the upper outer quadrant where the patient reports pain. No architectural distortion or acoustical shadowing. No skin thickening or axillary adenopathy. IMPRESSION: A skin marker should be placed over the area of palpable concern and pain followed by a diagnostic unilateral mammogram with spot compression views for full evaluation of the patient's complaint of a palpable abnormality. ASSESSMENT: BI-RADS Category 0: Incomplete- Need Additional Imaging Evaluation and/or Prior Mammograms for Comparison.
== END 2023-10-07 23:59 | disposition home or self-care (01) ==
LOC: RAD 14:11
PROVIDERS: PCP Physician Assistant; Visit Provider Obstetrics & Gynecology
DX: N64.4 Mastodynia (principal); N63.21 Unspecified lump in the left breast, upper outer quadrant
CPT/HCPCS: 76641

== ENCOUNTER 2023-10-21 12:45 | Outpatient (CLI) | payer MEDICAID, SELFPAY ==
--- NOTE | 2023-10-21 12:45 | MM_ITS ---
PROCEDURE INFORMATION: Exam: Left Diagnostic Breast Tomosynthesis Exam date and time: 10/21/2023 12:42 PM Age: 38 years old Clinical indication: Left breast pain; Left breast palpable lump TECHNIQUE: Imaging protocol: Left Diagnostic tomosynthesis and 2D mammography including computer-aided detection (CAD) when performed. Unilateral or bilateral exam. COMPARISON: US BREAST LT COMPLETE 10/07/2023 2:22 PM FINDINGS: MAMMOGRAPHY: Breast composition: The breasts are almost entirely fatty. Breast mammogram findings: A skin marker is placed over the site of palpable concern in the left breast. There is no underlying mammographic abnormality. No stellate mass, architectural distortion, or suspicious microcalcifications to suggest malignancy. No skin thickening or axillary adenopathy. Note that ultrasound performed on 10/07/2023 demonstrated no underlying sonographic abnormality to correlate to the patient's palpable area of concern. IMPRESSION: 1. No mammographic evidence of malignancy in the left breast. 2. No abnormality to correlate to the patient's palpable area of concern in the left breast on both mammography and ultrasound. Continued clinical monitoring, with repeat imaging if necessary, is recommended if the patient's palpable area persists or worsens. Further evaluation of a palpable abnormality should be based on clinical grounds regardless of radiographic findings or lack thereof. ASSESSMENT: BI-RADS Category 1: Negative
== END 2023-10-21 23:59 | disposition home or self-care (01) ==
LOC: RAD 12:45
PROVIDERS: PCP Physician Assistant; Visit Provider Obstetrics & Gynecology
DX: R92.8 Other abnormal and inconclusive findings on diagnostic imaging of breast (principal)
CPT/HCPCS: 77061; 77065; G0279

== ENCOUNTER 2024-12-10 15:34 | Outpatient (CLI) | payer MEDICAID, SELFPAY ==
--- NOTE | 2024-12-10 15:36 | CA_ITS ---
FINAL REPORT CLINICAL HISTORY: HTN, HLD, DM, family history of DVT. Patient denies trauma. States she traveled to [place] 1 week ago with left leg edema since. She has been having charley horses in this leg since. Redness noted in left calf. FINDINGS: DUPLEX VENOUS SONOGRAPHY OF THE LEFT LOWER EXTREMITY Multiple transverse and longitudinal scans were performed of the femoropopliteal deep venous system, with augmentation and compression maneuvers. FINDINGS: Normal phasic flow was noted in the visualized deep venous system. No intraluminal increased echogenicity is noted to suggest thrombus. There is normal compression and augmentation of the venous structures. No abnormal venous collaterals are seen. IMPRESSION: No evidence of deep venous thrombosis of the left lower extremity. Reviewed, Interpreted and Dictated by Tere Estevez MD Transcribed by Cheyanne Palma Authenticated and [facility]
--- OUTSIDE RECORDS SUMMARY | 2024-12-10 15:39 | XMS_ITS | Clinical Summary ---
Author Organization [facility] Address [address] [place] [address] Care Team Providers Care Oncology Physician Name Role Phone Monique Saxena Primary Care Provider [phone] Allergies Active Allergy Reactions Criticality Noted Date Comments Sulfamethoxazole-Trimethoprim Rash Low 2016 Latex Rash Low 10/24/2019 Levofloxacin In D5w Myalgia Low 10/30/2016 Benzonatate Swelling Low 10/30/2016 Medications * This document contains information received from the source organization and may not represent a complete record from that organization. levothyroxine (SYNTHROID, LEVOTHROID) 50 MCG tablet Take 1 tablet by mouth Daily. Active Cholecalciferol (VITAMIN D3) 25 MCG (1000 UT) capsule Take 1 capsule by mouth Daily. 0 9 Active vitamin D (ERGOCALCIFEROL ) 1.25 MG (38990 UT) capsule capsule Take 1 capsule by mouth Every 7 (Seven) Days. 0 9 Active ibuprofen (ADVIL,MOTRIN) 800 MG tablet Take 1 tablet by mouth 2 (Two) Times a Day As Needed. 0 9 Active FEROSUL 325 (65 Fe) MG tablet Take 1 tablet by mouth Daily With Breakfast. 9 Active clonazePAM (KlonoPIN) 1 MG tablet Take 1 tablet by mouth 3 (Three) Times a Day As Needed. 0 Active valACYclovir (VALTREX) 500 MG tablet Take 1 tablet by mouth Daily. 0 Active atorvastatin (LIPITOR) 10 MG tablet Take 1 tablet by mouth every night at bedtime. Active fluticasone (FLONASE) 50 MCG/ACT nasal spray 2 sprays by Each Nare route Daily. Active Advair Diskus 500-50 MCG/ACT DISKUS Inhale 1 puff 2 (Two) Times a Day. Active levalbuterol (XOPENEX) 1.25 MG/3ML nebulizer solution Active levalbuterol (XOPENEX HFA) 45 MCG/ACT inhaler INHALE 2 PUFFS BY MOUTH EVERY 4 TO 6 HOURS NEEDED FOR PERSISTENT COUGH OR WHEEZING OR CHEST TIGHTNESS OR SHORTNESS OF BREATH Active montelukast (SINGULAIR) 10 MG tablet Take 1 tablet by mouth Daily. Active captopril (CAPOTEN) 50 MG tablet Take 1 tablet by mouth 2 (Two) Times a Day. Active Vyvanse 30 MG capsule Take 1 capsule by mouth Every Morning Active Voquezna 20 MG tablet Take 1 tablet by mouth Daily. Active Semaglutide, 1 MG/DOSE, (Ozempic, 1 MG/DOSE,) 2 MG/1.5ML solution pen-injector Inject 1 mg under the skin into the appropriate area as directed 1 (One) Time Per Week. Active Active Problems Problem Noted Date Diagnosed Date Fatigue Dyspepsia Morbid obesity with BMI of 70 and over, adult Dyspnea on exertion Assessment & Plan (09/07/2024 5:00 PM EDT): Patient reports she continues to have dyspnea on exertion. She was referred to a pulmonary doctor at by her PCP for having shortness of breath and constantly having respiratory infections. She is on 2 L oxygen with her CPAP at night. Patient is not a smoker. Plan to repeat echo to evaluate heart function or any structural or valvular abnormalities. Hypothyroidism GERD (gastroesophageal reflux disease) Overview (12/04/2019): on daily Prilosec Anxiety Asthma Depression IBS (irritable bowel syndrome) Overview (12/04/2019): since having senia Iron deficiency anemia Overview (12/04/2019): on BID iron Vitamin D deficiency Prediabetes Hypertension Assessment & Plan (09/07/2024 5:01 PM EDT): Pain she reports that since she has started seeing the pulmonary doctor that he feels like that her captopril needs to be changed because it can cause issues with her vocal cords. She has been having issues with her vocal cords and having a raspy voice that sometimes does not come out. She would like for her PCP to manage the blood pressure medication. Assessment & Plan (05/17/2024 11:49 AM EDT): Hypertension is stable and controlled Continue current treatment regimen. Blood pressure will be reassessed in 8 weeks. Patient reports that she has been off lisinopril and been on captopril. She reports that this has been controlling her blood pressure. This is managed by her PCP. Continue prescribed medication as well as pap therapy. Untreated sleep apnea may potentiate hypertension. Assessment & Plan (05/20/2023 4:06 PM EDT): Hypertension is stable and controlled Continue current treatment regimen. Blood pressure will be reassessed in 6 months. Patient is taking lisinopril/hydrochlorothiazide 20/12.5 mg in the a.m. and lisinopril 5 mg in p.m. she notes increased swelling in her legs that resolves at night she is wanting to increase the hydrochlorothiazide. Will order lisinopril/hydrochlorothiazide 20/25 mg in the a.m. and continue her lisinopril 5 in the evening. Patient keeps a blood pressure log at home. Continue medications along with PAP therapy for optimal control of hypertension. Untreated sleep apnea may potentiate hypertension. H. pylori infection Overview (12/04/2019): treated remotely Sleep apnea Assessment & Plan (09/07/2024 5:03 PM EDT): Patient has a baseline AHI of 7. This is mild sleep apnea. Download shows good compliance and control. Mask fit and airflow are comfortable. Patient reports that she finally got a new device and when she got it it started throwing water into her mask and she was having to wake up to dump the water out. She called the DME company and they told her to turn her humidifier down. They wanted to add heated tubing but she could not hook her oxygen into her BiPAP device if she had heated tubing. I have advised patient to set her PAP device on the floor so that the water does not come down into the tubing and her mask. Patient reports her sleep is rested other than the water issue. Patient is receiving benefit from PAP therapy. Plan to continue current treatment. Patient states that the DME company must of accidentally sent her a small mask instead of a medium. She would like for me to send the prescription in for the medium size mask. Assessment & Plan (05/17/2024 11:45 AM EDT): Patient has a baseline AHI of 7. This is mild sleep apnea. Download shows good compliance and control. Mask fit and airflow are comfortable. Patient reports that she is starting to smell like something is burning inside of her machine. She states that she has to take it off and turn the machine off for a little bit and then restart it. She reports that her device is greater than 5 years old and she would like to try to get a new one. Patient is receiving benefit from PAP therapy and we plan to continue current treatment. Prescription sent to DME for new ResMed BiPAP 08/03 with PAP supplies to [facility] of patient choice. Patient to follow-up in 6 weeks for insurance compliance visit. Assessment & Plan (05/20/2023 4:07 PM EDT): Patient has a baseline AHI of 7. This is mild sleep apnea. Download shows good compliance and control. Mask fit and airflow are comfortable. AHI is 1 on current download. Patient is receiving benefit from PAP therapy. Plan to continue current treatment. Supply order sent to [facility] of patient choice. Encounters Date Type Department Care Team Description 09/19/2024 Results Follow-Up [facility] [address] [id number] Debora Cedeno MA 09/13/2024 2:30 PM EDT Ancillary Procedure [facility] [address] [id number] FARLEY (dyspnea on exertion) 09/13/2024 Travel from Last 3 Months Immunizations Immunization Administration Dates Next Due Fluzone (or Fluarix & Flulaval for VFC) >6mos Tdap 03/15/2013 Family History Medical History Relation Name Comments Diabetes Father Heart attack Father Heart disease Father Hypertension Father Skin cancer Father Sleep apnea Father Stroke Father Heart attack Maternal Grandfather Heart disease Maternal Grandfather Diabetes Maternal Grandmother Heart attack Mother Stroke Mother No Known Problems Paternal Grandfather Diabetes Paternal Grandmother Hypertension Paternal Grandmother Lung disease Paternal Grandmother Hypertension Sister 1 Seizures Sister 1 Hypertension Sister 2 Obesity Sister 2 Relation Name Status Comments Father Alive Maternal Grandfather Maternal Grandmother Mother Paternal Grandfather Paternal Grandmother Sister 1 Alive Sister 2 Alive Social History Tobacco Use Types Packs/Day Years Used Date Smoking Tobacco: Never Passive Smoke Exposure: Past Smokeless Tobacco: Never Tobacco Cessation:Counseling Given: Not Answered Alcohol Use Standard Drinks/Week Comments No 0 (1 standard drink = 0.6 oz pur e alcohol) Comments No Sex and Gender Information Value Date Recorded Sex Assigned at Female 09/06/2024 2:09 PM EDT Legal Sex Female 1:47 PM EDT Gender Identity Not on file Sexual Orientation Straight 09/06/2024 2: 09 PM EDT Last Filed Vital Signs Vital Sign Reading Time Taken Comments Blood Pressure 155/74 09/13/2024 2:27 PM EDT Pulse 84 09/07/2024 1:21 PM EDT Temperature 36 C (96.8 F) 12/04/2019 7:38 AM EDT Respiratory Rate 18 12/04/2019 7:38 AM EDT Oxygen Saturation 98% 09/07/2024 1:21 PM EDT Inhaled Oxygen Concentration - - Weight 168 kg (371 lb) 09/13/2024 2:27 PM EDT Height 162.6 cm (5' 4 ) 09/13/2024 2:27 PM EDT Body Mass Index 63.68 09/13/2024 2:27 PM EDT Plan of Treatment Upcoming Encounters Date Type Department Care Team (Late st Contact Info) Description 03/14/2025 3:15 PM EST Office Visit [facility] [address] [place] [address] Natasha Gonzáles, CLIENT SUPPORT COORDINATOR [address] [place] [id number] Health Maintenance Due Date Last Done Comments Annual Gynecologic Pelvic an d Breast Exam 1984 DIABETIC EYE EXAM 1994 DIABETIC FOOT EXAM 1994 URINE MICROALBUMIN-CREATININ E RATIO (uACR) 1994 Hepatitis B (1 of 3 - 19+ 3- dose series) 08/19/2003 Pneumococcal Vaccine 0-49 (1 of 2 - PCV) 08/19/2003 PAP SMEAR 2005 ANNUAL PHYSICAL 10/30/2016 HEPATITIS C SCREENING 10/30/2016 HEMOGLOBIN A1C 06/03/2020 12/04/2019 TDAP/TD VACCINES (2 - Td or Tdap) 03/15/2023 014 MAMMOGRAM 2024 INFLUENZA VACCINE 09/28/2024 01/13/2023, , 12/10/2020, Additional history exists Procedures Procedure Name Priority Date/Time Associated Diagnosis Comments ECHO COMPLETE W/ DOPPLER AND COLOR FLOW Routine 09/13/2024 3:15 PM EDT FARLEY (dyspnea on exertion) HEMOGLOBIN A1C Routine 12/04/2019 10:55 AM EDT Sleep apnea, unspecified type Hypertension, unspecified type Prediabetes Hypothyroidism, unspecified type Fatigue, unspecified type Dyspepsia from Last 3 Months or Most Recently Relevant to Health Maintenance Results * ECHO COMPLETE W/ DOPPLER AND COLOR FLOW (09/13/2024 3:15 PM EDT) EF(MOD-bp) 65.1 % LVIDd 5.6 cm LVIDs 3.6 cm IVSd 1.26 cm LVPWd 1.25 cm FS 36.1 % IVS/LVPW 1.01 cm ESV(cubed) 46.7 ml LV Sys Vol (BSA corrected) 21.5 cm2 EDV(cubed) 178.5 ml LV Miller Vol (BSA corrected) 59.0 cm2 LV mass(C)d 300.9 grams LVOT area 3.8 cm2 LVOT diam 2.20 cm EDV(MOD-sp2) 190.0 ml EDV(MOD-sp4) 150.0 ml ESV(MOD-sp2) 62.5 ml ESV(MOD-sp4) 54.7 ml SV(MOD-sp2) 127.5 ml SV(MOD-sp4) 95.3 ml SVi(MOD-SP2) 50.1 ml/m2 SVi(MOD-SP4) 37.5 ml/m2 SVi (LVOT) 45.7 ml/m2 EF(MOD-sp2) 67.1 % EF(MOD-sp4) 63.5 % MV E max cricket 119.0 cm/sec MV A max cricket 82.2 cm/sec MV dec time 0.25 sec MV E/A 1.45 IVRT 92.0 ms LA ESV Index (BP) 20.2 ml/m2 Med Peak E' Cricket 13.4 cm/sec Lat Peak E' Cricket 14.3 cm/sec TR max cricket 239.0 cm/sec Avg E/e' ratio 8.59 SV(LVOT) 116.3 ml RVIDd 3.1 cm RV Base 3.6 cm RV Mid 3.0 cm RV Length 7.9 cm TAPSE (>1.6) 2.25 cm RV S' 20.3 cm/sec LA dimension (2D) 4.3 cm LV V1 max 126.0 cm/sec LV V1 max PG 6.4 mmHg LV V1 mean PG 4.0 mmHg LV V1 VTI 30.6 cm Ao pk cricket 215.0 cm/sec Ao max PG 18.5 mmHg Ao mean PG 11.0 mmHg Ao V2 VTI 48.6 cm CAITLIN(I,D) 2.39 cm2 Dimensionless Index 0.63 (DI) MV max PG 8.8 mmHg MV mean PG 3.0 mmHg MV V2 VTI 47.2 cm MV P1/2t 64.7 msec MVA(P1/2t) 3.4 cm2 MVA(VTI) 2.46 cm2 MV dec slope 470.5 cm/sec2 TR max PG 22.8 mmHg RVSP(TR) 25.8 mmHg RAP systole 3.0 mmHg PA V2 max 123.0 cm/sec Ao root diam 3.0 cm Sinus 2.9 cm Anatomical Region Laterality Modality Ultrasound Narrative 09/17/2024 5:38 PM EDT Left ventricular systolic function is normal. Calculated left ventricular EF = 65.1% Left ventricular ejection fraction appears to be 61 - 65%. Left ventricular diastolic function was indeterminate. Estimated right ventricular systolic pressure from tricuspid regurgitation is normal (<35 mmHg). Left Ventricle Left ventricular systolic function is normal. Calculated left ventricular EF = 65.1% Left ventricular ejection fraction appears to be 61 - 65%. Normal left ventricular cavity size noted. Left ventricular wall thickness is consistent with mild concentric hypertrophy. All left ventricular wall segments contract normally. Left ventricular diastolic function was indeterminate. Right Ventricle Normal right ventricular cavity size, wall thickness, systolic function and septal motion noted. Left Atrium Left atrial volume is moderately increased. Right Atrium Normal right atrial cavity size noted. Right atrial volume is 25 ml. Mitral Valve Mild mitral annular calcification is present. There is mild calcification of the mitral valve posterior leaflet(s). Mild mitral valve regurgitation is present. No significant mitral valve stenosis is present. Tricuspid Valve The tricuspid valve is grossly normal in structure. Mild tricuspid valve regurgitation is present. Estimated right ventricular systolic pressure from tricuspid regurgitation is normal (<35 mmHg). No evidence of significant tricuspid valve stenosis is present. Aortic Valve The aortic valve is not well visualized. No significant aortic valve regurgitation is present. No hemodynamically significant aortic valve stenosis is present. Pulmonic Valve The pulmonic valve is not well visualized. There is trace pulmonic valve regurgitation present. There is no pulmonic valve stenosis present. Pericardium The pericardium is normal. There is no evidence of pericardial effusion. . Greater Vessels No dilation of the aortic root is present. No dilation of the sinuses of Valsalva is present. No dilation of the proximal aorta is present. The aortic arch not well visualized. The descending aorta not well visualized. The inferior vena cava is normally sized. Normal IVC inspiratory collapse of greater than 50% noted. The pulmonary artery not well visualized. Study Quality The study is technically difficult for diagnosis. The quality of the study is limited due to patient body habitus. Normal sinus was the predominant rhythm observed during the procedure. Wall Scoring Score Index: 1.00 The left ventricular wall motion is normal. us Natasha W ivers CLIENT SUPPORT COORDINATOR CV ECHO ORDERABLES Final Res ult * (ABNORMAL) Hemoglobin A1c (12/04/2019 10:55 AM EDT) Hemoglobin A1C 6.50(H) 4.80 - 5.60 % [facility] Comment: Hemoglobin A1C Ranges: Increased Risk for Diabetes 5.7% to 6.4% Diabetes >= 6.5% Diabetic Goal < 7.0% Blood 12/04/2019 10:5 5 AM EDT 12/04/2019 Narrative [facility] ([facility]) - 12/05/2019 4:07 AM EDT Performed at: [address] [place] [id number] Sewing Room Supervisor: Nick Renner MD, Phone: [phone] Patient Fasting: N us Kari [facility] BLOOD ORDERABLES Final Result [facility] ([facility]UL[facility]) [address] [place] [address], [place] [phone] [facility] [address] [place] [address], [place] [phone] from Last 3 Months or Most Recently Relevant to Health Maintenance Insurance [employer] Care Teams Oncology Physician Relationship Specialty Start Date End Date Monique Saxena PA PCP - General Physician Teacher [employer] 04/10/19
--- OUTSIDE RECORDS SUMMARY | 2024-12-10 15:39 | XMS_ITS | Encounter Summary ---
Author Organization Healthcare Address [address] [place] [address] Care Team Providers Care Bulk Pallet Builder Name Role Phone Edis Arias MD Primary Care Provider [phone] Encounter Details Date Type Department Care Team (Late Contact Info) Description 10/18/2024 Telephone [facility] [address], [address] [place] [address] Greta Stokes Social History Tobacco Use Types Packs/Day Years Used Date Smoking Tobacco: Never Alcohol Use Standard Drinks/Week Comments No 0 (1 standard drink = 0.6 oz pur e alcohol) Comments Unknown Sex and Gender Information Value Date Recorded Sex Assigned at Not on file Legal Sex Female 6:06 PM EDT Gender Identity Not on file Sexual Orientation Not on file documented as of this encounter Miscellaneous Notes * Telephone Encounter - Greta Stokes - 10/18/2024 10:01 AM EDT called pt to coordinate with childrens appt documented in this encounter Plan of Treatment Upcoming Encounters Date Type Department Care Team (Late Contact Info) Description 12/25/2024 10:00 AM EDT Ancillary Procedure [facility] [address], [address] [place] [phone] 12/25/2024 11:00 AM EDT Office Visit [facility] [address], [address] [place] [address] Daquan Gómez MD [address] [place] [address] documented as of this encounter Visit Diagnoses Not on filedocumented in this encounter Additional Health Concerns Assessment Noted Time A fall risk assessment has been complete d for the patient 08/28/2024 1:19 PM EDT A Body Mass Index follow-up plan has been documented for the patient 08/28/2024 3:06 PM EDT documented as of this encounter Care Teams Bulk Pallet Builder Relationship Specialty Start Date End Date Edis Arias MD [address] [place] [address] PCP - General 07/11/20 documented as of this encounter
--- OUTSIDE RECORDS SUMMARY | 2024-12-10 15:39 | XMS_ITS | Encounter Summary ---
Author Organization [facility] Address [address] [place] [address] Care Team Providers Care Solderer Production Line Name Role Phone Edis Arias MD Primary Care Provider [phone] Reason for Referral * Consultation (Routine) - Authorized Specialty Diagnoses / Procedures Referred By Shane roche Referred To Contact Oral Surgery Diagnoses Impacted teeth Guanaco Sandoval DMD [address] [address] Phone: tel: fax: [facility] carbon paper coating supervisor [facility] [address] [place] [address] [address] [place] [address] Phone: tel: Referral ID Status Reason Start Date Expiration Date Visits Requested Visits Authorized [id number] Authorized Specialty Services Required 04/26/2024 10/26/2025 1 1 Encounter Details Date Type Department Care Team (Late st Contact Info) Description 04/26/2024 Community Orders [facility] [address] [place] [address] Guanaco Sandoval DMD [address] [id number] Impacted teeth (Primary Dx) Social History Tobacco Use Types Packs/Day Years [...] on file documented as of this encounter Plan of Treatment Upcoming Encounters Date Type Department Care Team (Late st Contact Info) Description 12/25/2024 10:00 AM EDT Ancillary Procedure [facility] [place] [address], [address] [place] [address] 12/25/2024 11:00 AM EDT Office Visit [facility] [address], [address] [place] [address] Daquan Gómez MD [address] [place] [address] Scheduled Referrals Name Type Priority Associated Diagnoses Order Schedule Ambulatory referral to Oral Maxillofacial Surgery Outpatient Referral Routine Impacted teeth Ordered: 04/26/2024 documented as of this encounter Visit Diagnoses Diagnosis Impacted teeth- Primary documented in this encounter Care Teams Solderer Production Line Relationship Specialty Start Date End Date Edis Arias MD [address] [place] [address] PCP - General 07/11/20 documented as of this encounter
--- OUTSIDE RECORDS SUMMARY | 2024-12-10 15:39 | XMS_ITS | Encounter Summary ---
Author Organization Healthcare Address [address] [place] [address] Care Team Providers Care Director International Name Role Phone Edis Arias MD Primary Care Provider [phone] Encounter Details Date Type Department Care Team (Late Contact Info) Description 10/18/[address] [facility] Medicine [facility] [address] [place] [phone] Greta Stokes Social History Tobacco Use Types [...] Telephone Encounter - Greta Stokes - 10/18/2024 9:40 AM EDT Called pt to see when was best for me to r/s her appt documented in this encounter Plan of Treatment Upcoming Encounters Date Type Department Care Team (Late Contact Info) Description 12/25/2024 10:00 AM EDT Ancillary Procedure [facility] [address], [address] [place] [address] 12/25/2024 11:00 AM EDT Office Visit [facility] [address], [address] [place] [address] Daquan Gómez MD [address] [place] [address] documented as of this encounter Visit Diagnoses Not on filedocumented in this encounter Additional Health Concerns Assessment Noted Time A fall risk assessment has been complete d for the patient 08/28/2024 1:19 PM EDT A Body Mass Index follow-up plan has been documented for the patient 08/28/2024 3:06 PM EDT documented as of this encounter Care Teams Director International Relationship Specialty Start Date End Date Edis Arias MD [address] [place] [address] PCP - General 07/11/20 documented as of this encounter
--- OUTSIDE RECORDS SUMMARY | 2024-12-10 15:39 | XMS_ITS | Encounter Summary ---
Author Organization [facility] Address [address] [place] [address] Care Team Providers Care Repairer Welding Systems And Equipment Name Role Phone Edis Arias MD Primary Care Provider [phone] Reason for Referral * Consultation (Routine) - Authorized Specialty Diagnoses / Procedures Referred By Contac t Referred To Contact Gastroenterology Diagnoses Obesity, morbid (more than 100 lbs over ideal weight or BMI > 40) (CMS/HCC) Nonulcer dyspepsia Irritable bowel syndrome with diarrhea Early satiety Nausea Abdominal distension Epigastric pain Gastric reflux syndrome Luciano Hurst MD [address] [address] Phone: tel: fax: Referral ID Status Reason Start Date Expiration Date Visits Requested Visits Authorized [id number] Authorized Specialty Services Required 09/17/2024 03/19/2026 1 1 Encounter Details Date Type Department Care Team (Late st Contact Info) Description 09/17/2024 Community [facility] [address] [place] [address] Luciano Hurst MD [address] [facility] [address] [address] Obesity, morbid (more than 100 lbs over ideal weight or BMI > 40) (CMS/HCC) (Primary Dx); Nonulcer dyspepsia; Irritable bowel syndrome with diarrhea; Early satiety; Nausea; Abdominal distension; Epigastric pain; Gastric reflux syndrome Social History Tobacco Use Types Packs/Day Years [...] Description 12/25/2024 10:00 AM EDT Ancillary Procedure [facility] [address], [address] [place] [address] 12/25/2024 11:00 AM EDT Office Visit [facility] [address], [address] [place] [address] Daquan Gómez MD [address] [place] [address] Scheduled Referrals Name Type Priority Associated Diagnoses Order Schedule Ambulatory referral to Gastroenterology Outpatient Referral Routine Obesity, morbid (more than 100 lbs over ideal weight or BMI > 40) (CMS/HCC) Nonulcer dyspepsia Irritable bowel syndrome with diarrhea Early satiety Nausea Abdominal distension Epigastric pain Gastric reflux syndrome 1 Occurrences starting 09/17/2024 until 03/21/2026 documented as of this encounter Visit Diagnoses Diagnosis Obesity, morbid (more than 100 lbs over ideal weight or BMI > 40) (CMS/HCC)- Primary Nonulcer dyspepsia Dyspepsia and other specified disorders of function of stomach Irritable bowel syndrome with diarrhea Irritable bowel syndrome Early satiety Nausea Nausea alone Abdominal distension Flatulence, eructation, and gas pain Epigastric pain Abdominal pain, epigastric Gastric reflux syndrome Esophageal reflux documented in this encounter Additional Health Concerns Assessment Noted Time A fall risk assessment has been complete d for the patient 08/28/2024 1:19 PM EDT A Body Mass Index follow-up plan has been documented for the patient 08/28/2024 3:06 PM EDT documented as of this encounter Care Teams Repairer Welding Systems And Equipment Relationship Specialty Start Date End Date Edis Arias MD [address] [place] [address] PCP - General 07/11/20 documented as of this encounter
--- OUTSIDE RECORDS SUMMARY | 2024-12-10 15:39 | XMS_ITS | Clinical Summary ---
Author Organization [facility] Address [address] [place] [address] Care Team Providers Care Corporate Real Estate Manager Name Role Phone Edis Arias MD Primary Care Provider [phone] Allergies Active Allergy Reactions Criticality Noted Date Comments Benzonatate Other - please document in the comment field,Unknown - Patient states they do not know rxn details Low 02/25/2013 watery eyes Latex Unknown - Patient states they do not know rxn details Low 09/03/2013 Levofloxacin Unknown - Patient states they do not know rxn details Low 09/03/2013 Sulfamethoxazole-Trimethop rim Rash,Hives,Unknown - Patient states they do not know rxn details Medium 02/25/2013 Tiotropium Other - please document in the comment field,Unknown - Patient states they do not know rxn details Low 02/25/2013 chest pain Medications carvedilol (Coreg) 25 MG tablet Take 1 tablet twice daily with meals 09/04/19 14 Active FLUoxetine (PROzac) 40 MG capsule Take 1 qd 09/04/19 14 Active fluticasone (Flonase) 50 MCG/ACT nasal spray As directed 09/04/19 14 Active fluticasone-garrett meterol (Advair Diskus) 250-50 MCG/DOSE diskus inhaler As directed 09/04/19 14 Active hydroCHLOROthia zide (Microzide) 12.5 MG capsule Take 1 capsule daily 09/04/19 14 Active captopril (Capoten) 50 MG tablet Take 1 tablet by mouth 2 times a day. Active atorvastatin (Lipitor) 10 MG tablet TAKE ONE TABLET BY MOUTH AT BEDTIME FOR HIGH CHOLESTEROL Active D3 High Potency 25 MCG (1000 UT) capsule Take 1 capsule every day by oral route as directed for 90 days, for Vitamin D deficiency. 08/14/19 25 Active levalbuterol (Xopenex) 1.25 MG/3ML nebulizer solution Active lisdexamfetamin e (Vyvanse) 30 MG capsule Take 1 capsule by mouth. Active montelukast (Singulair) 10 MG tablet TAKE ONE TABLET BY MOUTH EVERY DAY FOR ASTHMA AND ALLERGIES Active Ozempic, 1 MG/DOSE, 4 MG/3ML solution pen-injector Inject 1 mg every week by subcutaneous route as directed for 28 days, for diabetes. Active Vonoprazan Fumarate (Voquezna) 20 MG tablet Take 1 tablet every day by oral route as directed for 30 days, for heartburn. Active clonazePAM (KlonoPIN) 1 MG tablet Take 1 tablet 3 times a day by oral route as directed for 30 days, for anxiety. Active ergocalciferol 1.25 MG (36366 UT) capsule 04/03/19 25 Active levothyroxine (Synthroid, Levoxyl) 50 MCG tablet TAKE ONE TABLET BY MOUTH EVERY DAY FOR HYPOTHYROIDISM Active azelastine (Astelin) 0.1 % nasal sprayIndication s:Allergic rhinitis, unspecified seasonality, unspecified trigger Administer 1 spray into each nostril 2 times a day. Use in each nostril as directed 30 mL 12 08/29/19 25 Active fexofenadine (Marleny) 60 MG tabletIndicatio ns:Allergic rhinitis, unspecified seasonality, unspecified trigger Take 1 tablet by mouth 2 times a day. 60 tablet 08/29/19 25 026 Active EPINEPHrine (Epipen) 0.3 MG/0.3ML autoinjectorInd ications:Food allergy Inject 0.3 mL into the muscle 1 time as needed for anaphylaxis for up to 2 doses. Inject into upper leg. Call 911 after use. 2 each 08/29/19 Active Active Problems Problem Noted Date Diagnosed Date Microalbuminuria 07/22/2020 Anxiety 09/03/2013 Asthma 09/03/2013 CHF (congestive heart failure) 09/03/2013 Depression 09/03/2013 HELLP syndrome 09/03/2013 Hypertension 09/03/2013 Obesity, morbid (more than 1 00 lbs over ideal weight or BMI > 40) 09/03/2013 Cardiomyopathy 03/30/2013 High-risk supervision 03/23/2013 Wound infection after surgery 03/23/2013 Encounters Date Type Department Care Team Description 11/28/2024 Telephone [facility] potato picker [address] [place] [address] Surgeon Galo, 10/18/2024 Telephone [facility] [address] [place] [address] Rylee carrillo, Greta 10/18/2024 Telephone [facility] [address] [place] [address] Rylee carrillo, Greta 10/03/2024 Telephone [facility] [address] [place] [address] Daquan Gómez MD 09/17/2024 [facility] [address] [place] [address] Luciano Hurst MD Obesity, morbid (more than 100 lbs over ideal weight or BMI > 40) (CMS/HCC) (Primary Dx); Nonulcer dyspepsia; Irritable bowel syndrome with diarrhea; Early satiety; Nausea; Abdominal distension; Epigastric pain; Gastric reflux syndrome from Last 3 Months Immunizations Immunization Administration Dates Next Due Tdap 03/15/2013 Family History Medical History Relation Name Comments Coronary artery disease Father Diabetes Father Coronary artery disease Mother Diabetes Mother Relation Name Status Comments Father Mother Social History Tobacco Use Types Packs/Day Years Used Date Smoking Tobacco: Never Alcohol Use Standard Drinks/Week Comments No 0 (1 standard drink = 0.6 oz pur e alcohol) Comments Unknown Sex and Gender Information Value Date Recorded Sex Assigned at Not on file Legal Sex Female 6:06 PM EDT Gender Identity Not on file Sexual Orientation Not on file Last Filed Vital Signs Vital Sign Reading Time Taken Comments Blood Pressure 131/92 08/28/2024 1:19 PM EDT Pulse 70 08/28/2024 1:19 PM EDT Temperature 36.6 C (97.8 F) 08/28/2024 1:19 PM EDT Respiratory Rate 20 02/19/2021 1:30 AM EST Oxygen Saturation 97% 08/28/2024 1:19 PM EDT Inhaled Oxygen Concentration - - Weight 170 kg (375 lb 7.1 oz) 08/28/2024 1:19 PM EDT Height 160 cm (5' 3 ) 08/28/2024 1:19 PM EDT Body Mass Index 66.51 08/28/2024 1:19 PM EDT Plan of Treatment Upcoming Encounters Date Type Department Care Team (Late st Contact Info) Description 12/25/2024 10:00 AM EDT Ancillary Procedure [facility] [address] [facility], [address] [place] [address] 12/25/2024 11:00 AM EDT Office Visit [facility] [address] [facility], [address] [place] [address] Daquan Gómez MD [address] [place] [address] Health Maintenance Due Date Last Done Comments [facility]-Depression Screening 1984 [facility]-HIV Screening 1984 [facility]-Hepatitis C Screening 1984 [facility]-/Child/Adol SDOH Screenings 1984 [facility]-Varicella Vaccines (1 of 2 - 13+ 2-dose series) 1997 [facility]- SDOH Screenings 2002 [facility]-Adult SDOH Screenings 2002 [facility]-Hepatitis B Vaccines (1 of 3 - 19+ 3-dose series) 08/19/2003 [facility]-Pneumococcal Vaccine: Pediatrics (0 to 5 Years) and At-Risk Patients (6 to 49 Years) (1 of 2 - PCV) 08/19/2003 [facility]-Pap Smear 2005 HPV Vaccines (1 - 3-dose SCDM series) 08/19/2011 [facility]-Cervical Cancer Screening 2014 [facility]-HPV/Cotest 2014 [id number] Vaccine (3 - Pfizer risk series) 12/21/2020 11/23/2020, 11/02/2020 [facility]-DTaP,Tdap,and Td Vaccines (2 - Td or Tdap) 03/15/2023 03/15/2013 [facility]-Influenza Vaccine (#1) 10/29/202401/13, 11/16/2021, 12/10/2020, Additional history exists [facility]-Zoster Vaccines (1 of 2) 2034 [facility]-Obesity Intervention Completed 08/28/2024 [facility]-HIB Vaccines Aged Out No longer e ligible based on patient's age to complete this topic [facility]-Hepatitis A Vaccines Aged Out No longer eligible based on patient's age to complete this topic [facility]-IPV Vaccines Aged Out No longer e ligible based on patient's age to complete this topic [facility]-Rotavirus Vaccines Aged Out No lo nger eligible based on patient's age to complete [place] [address] [facility] MEDICAID [facility] MEDICAID DENTAL Care Teams Corporate Real Estate Manager Relationship Specialty Start Date End Date Edis Arias MD [address] [place] [address] [facility] - General 07/11/20
--- OUTSIDE RECORDS SUMMARY | 2024-12-10 15:39 | XMS_ITS | Encounter Summary ---
Author Organization Healthcare Address [address] [place] [address] Care Team Providers Care Direct Support Worker Name Role Phone Edis Arias MD Primary Care Provider [phone] Encounter Details Date Type Department Care Team (Late Contact Info) Description 10/15/2021 [facility] [address] [place] [address] Monique Saxena, PA [address] [facility] [place] [address] Cervicalgia (Primary Dx) Social History Tobacco Use Types [...] Description 12/25/2024 10:00 AM EDT Ancillary Procedure [facility] [address] [facility], [address] [place] [address] 12/25/2024 11:00 AM EDT Office Visit [facility] [address] [facility], [address] [address] Daquan Gómez MD [address] [address] documented as of this encounter Visit Diagnoses Diagnosis Cervicalgia- Primary documented in this encounter Care Teams Direct Support Worker Relationship Specialty Start Date End Date Edis Arias MD [address] [place] [address] PCP - General 07/11/20 documented as of this encounter
--- OUTSIDE RECORDS SUMMARY | 2024-12-10 15:39 | XMS_ITS | Encounter Summary ---
Author Organization [facility] Address [address] [place] [address] Care Team Providers Care Bag Liner Name Role Phone Edis Arias MD Primary Care Provider [phone] Encounter Details Date Type Department Care Team (Late Contact Info) Description 11/28/[address] [facility] willow analyst [facility] [address] [place] [address] [address] [place] [address] Galo, Surgeon, [address] [place], [place] [id number] Social History Tobacco Use Types Packs/Day Years [...] encounter Miscellaneous Notes * Telephone Encounter - Diana Traore - 11/28/2024 1:56 PM EDT Attempted to reach pt off of [facility] to schedule an evaluation. No answer so left a vm advising pt to call back. mg documented in this encounter Plan of Treatment Upcoming Encounters Date Type Department Care Team (Late st Contact Info) Description 12/25/2024 10:00 AM EDT Ancillary Procedure [facility] [address] [facility], [address] [place] [address] 12/25/2024 11:00 AM EDT Office Visit [facility] [address] [facility], [address] [place] [address] Daquan Gómez MD [address] [facility] [address] [place] [address] documented as of this encounter Visit Diagnoses Not on filedocumented in this encounter Additional Health Concerns Assessment Noted Time A fall risk assessment has been complete d for the patient 08/28/2024 1:19 PM EDT A Body Mass Index follow-up plan has been documented for the patient 08/28/2024 3:06 PM EDT documented as of this encounter Care Teams Bag Liner Relationship Specialty Start Date End Date Edis Arias MD [address] [place] [address] PCP - General 07/11/20 documented as of this encounter
== END 2024-12-10 23:59 | disposition home or self-care (01) ==
LOC: RT 15:35
PROVIDERS: PCP Physician Assistant; Visit Provider Physician Assistant
DX: M79.605 Pain in left leg (principal)
CPT/HCPCS: 93971

== ENCOUNTER 2025-02-26 11:05 | Outpatient (CLI) | payer MEDICAID, SELFPAY ==
--- NOTE | 2025-02-26 11:00 | US_ITS ---
PROCEDURE: US TRANSVAGINAL CLINICAL INDICATION: pelvic pain COMPARISON: US US TRANSVAGINAL from 06/02/2020 US US TRANSVAGINAL from 09/18/2021 FINDINGS: Transvaginal sonographic images of the pelvis were obtained. UTERUS: 8.8 cm x 4.0cmx 4.3cm with a combined endometrial thickness of 4.7mm. A scar is seen. LEFT OVARY: 1.8 cmx1.9 cmx2.1cm with a volume of 3.8ml. There is a small follicle measuring 1.0 cm in the left ovary. RIGHT OVARY: Not visualized. Left ovary is seen and appears normal. Doppler flow to left ovary not visualized. There is no fluid in the cul-de-sac. IMPRESSION: 1. Anteverted, slightly enlarged uterus. The endometrium is thin measuring 4.7 mm. 2. The difficult exam secondary to patient's body habitus and pain with the examination. 3. The left ovary is seen and appears normal. There is a small follicle measuring 1 cm in the left ovary. Flow was not visualized during the examination. 4. No fluid in the cul-de-sac. Dictated by: Davidson Cisneros MD 02/26/2025 11:57 Davidson Cisneros MD in OV 02/26/2025 11:57
--- OUTSIDE RECORDS SUMMARY | 2025-02-26 11:22 | XMS_ITS | Encounter Summary ---
Author Organization [facility] Address [address] [place] [address] Care Team Providers Care Manager Banking Name Role Phone Edis Arias MD Primary Care Provider [phone] Encounter Details Date Type Department Care Team (Late Contact Info) Description 10/15/2021 [facility] [address] [place] [address] Monique Saxena, PA [address] [facility] [address] Cervicalgia (Primary Dx) Social History Tobacco Use [...] Care Team (Late st Contact Info) Description 04/15/2025 3:20 PM EST [facility] [address] [facility], [address] [place] [address] Uli Esqueda MD [address] [place] [address] documented as of this encounter Visit Diagnoses Diagnosis Cervicalgia- Primary documented in this encounter Care Teams Manager Banking Relationship Specialty Start Date End Date Edis Arias MD [address] [place] [id number] PCP - General 07/11/20 documented as of this encounter
--- OUTSIDE RECORDS SUMMARY | 2025-02-26 11:22 | XMS_ITS | Encounter Summary ---
Author Organization [facility] Address [address] [place] [address] Care Team Providers Care Toll Service Observer Name Role Phone Edis Arias MD Primary Care Provider [phone] Reason for Referral * Consultation (Routine) - Authorized Specialty Diagnoses / Procedures Referred By Shane roche Referred To Contact Oral Surgery Diagnoses Impacted teeth Guanaco Sandoval DMD [address] [place], [address] Phone: tel: fax: [facility] armor reconnaissance vehicle crewman Faculty [facility] [address] [place] [address] [address] [place] [address] Phone: tel: Referral ID Status Reason Start Date Expiration Date Visits Requested Visits Authorized [id number] Authorized Specialty Services Required 04/26/2024 10/26/2025 1 1 Encounter Details Date Type Department Care Team (Late st Contact Info) Description 04/26/2024 [facility] [address] [place] [address] Guanaco Sandoval DMD [address] [place], [id number] Impacted teeth (Primary Dx) Social History Tobacco [...] Upcoming Encounters Date Type Department Care Team ([facility] st Contact Info) Description 04/15/2025 3:20 PM EST Office Visit [facility] [address] [facility], [address] [place] [address] Uli Esqueda MD [address] [facility] [address] [place] [address] Scheduled Referrals Name Type Priority Associated Diagnoses Order Schedule Ambulatory referral to Oral Maxillofacial Surgery Outpatient Referral Routine Impacted teeth Ordered: 04/26/2024 documented as of this encounter Visit Diagnoses Diagnosis Impacted teeth- Primary documented in this encounter Care Teams Toll Service Observer Relationship Specialty Start Date End Date Edis Arias MD [address] [place] [address] PCP - General 07/11/20 documented as of this encounter
--- OUTSIDE RECORDS SUMMARY | 2025-02-26 11:22 | XMS_ITS | Encounter Summary ---
Author Organization [facility] Address [address] [place] [address] Care Team Providers Care Mortgage Sales Manager Name Role Phone Edis Arias MD Primary Care Provider [phone] Reason for Referral * Consultation (Routine) - Authorized Specialty Diagnoses / Procedures Referred By Shane t Referred To Contact Gastroenterology Diagnoses Obesity, morbid (more than 100 lbs over ideal weight or BMI > 40) (CMS/HCC) Nonulcer dyspepsia Irritable bowel syndrome with diarrhea Early satiety Nausea Abdominal distension Epigastric pain G[place] [address] fax: Referral ID Status Reason Start Date Expiration Date Visits Requested Visits Authorized [id number] Authorized Specialty Services Required 09/17/2024 03/19/2026 1 1 Encounter Details Date Type Department Care Team (Late st Contact Info) Description 09/17/2024 [facility] [address] [place] [address] [place] [address] Obesity, morbid (more than 100 lbs over [...] Description 04/15/2025 3:20 PM EST Office [facility] [address] [facility], [address] [place] [address] Uli Esqueda MD [address] [facility] [address] [place] [address] Scheduled Referrals Name Type Priority [...] documented as of this encounter Care Teams Mortgage Sales Manager Relationship Specialty Start Date End Date Edis Arias MD [address] [place] [address] PCP - General 07/11/20 documented as of this encounter
--- OUTSIDE RECORDS SUMMARY | 2025-02-26 11:22 | XMS_ITS | Clinical Summary ---
Author Organization [facility] Address [address] [place] [address] Care Team Providers Care Risk Management Director Name Role Phone Edis Arias MD Primary Care Provider [phone] Allergies Active Allergy Reactions Criticality Noted Date [...] days, for anxiety. Active ergocalciferol 1.25 MG (77334 UT) capsule 04/03/19 25 Active levothyroxine (Synthroid, [...] Date Type Department Care Team Description 11/28/2024 [facility] butt presser Faculty Clinic [address] [place] [address] [address] [place] [address] Surgeon Rosenthal MD from Last 3 Months Immunizations Immunization Administration [...] [facility] [address] [facility], [address] [place] [address] Uli Esqueda MD [address] [place] [address] Health Maintenance Due Date Last Done Comments [facility]-Depression Screening 1984 [facility]-HIV Screening 1984 [facility]-Hepatitis C Screening 1984 [facility]-Infant/Child/Adol SDOH Screenings 1984 [facility]-Varicella Vaccines (1 of 2 - 13+ 2-dose series) 1997 [facility]- SDOH Screenings 2002 [facility]-Adult SDOH Screenings 2002 [facility]-Hepatitis B Vaccines (1 of 3 - 19+ 3-dose series) 08/19/2003 [facility]-Pneumococcal Vaccine: Pediatrics (0 to 5 Years) and At-Risk Patients (6 to 49 Years) (1 of 2 - PCV) 08/19/2003 [facility]-Pap Smear 2005 [facility]-Cervical Cancer Screening 2014 [facility]-HPV/Cotest 2014 [id number] Vaccine (3 - Pfizer risk series) 12/21/2020 11/23/2020, 11/02/2020 [facility]-DTaP,Tdap,and Td Vaccines (2 - Td or Tdap) 03/15/2023 03/15/2013 [facility]-Zoster Vaccines (1 of 2) 2034 [facility]-Obesity Intervention Completed 08/28/2024 [facility]-Influenza Vaccine Completed 11/29/2024 , 01/13/2023, 11/16/2021, Additional history exists HPV Vaccines (No Doses Required) Completed [facility]-HIB Vaccines Aged Out No longer e [...] complete [place] [address] [facility] MEDICAID [facility] Care Teams Risk Management Director Relationship Specialty Start Date End Date Edis Arias MD [address] [id number] PCP - General 07/11/20
--- OUTSIDE RECORDS SUMMARY | 2025-02-26 11:22 | XMS_ITS | Clinical Summary ---
Author Organization [facility] Address [address] [place] [address] Care Team Providers Care Janitor Custodian Name Role Phone Monique Saxena Primary Care Provider [phone] Allergies Active Allergy Reactions Criticality Noted Date [...] Active vitamin D (ERGOCALCIFEROL ) 1.25 MG (02741 UT) capsule capsule Take 1 capsule by [...] [facility] BiPAP 08/03 with PAP supplies to DME of patient choice. Patient to follow-up in [...] continue current treatment. Supply order sent to DME of patient choice. Immunizations Immunization Administration Dates Next Due Fluzone [...] Description 03/14/2025 3:15 PM EST Office Visit [facility] [address] [id number] Natasha Gonzáles, [address] [place] [address] [place] [address] Health Maintenance Due Date Last Done Comments [...] Procedure Name Priority Date/Time Associated Diagnosis Comments HEMOGLOBIN A1C Routine 12/04/2019 10:55 AM EDT Sleep apnea, unspecified type Hypertension, unspecified type Prediabetes Hypothyroidism, unspecified type Fatigue, unspecified type Dyspepsia from Last 3 Months or Most Recently Relevant to Health Maintenance Results * (ABNORMAL) Hemoglobin A1c (12/04/2019 10:55 AM EDT) Hemoglobin A1C 6.50(H) 4.80 - 5.60 % [facility] Comment: Hemoglobin A1C Ranges: Increased Risk for Diabetes 5.7% to 6.4% Diabetes >= 6.5% Diabetic Goal < 7.0% Blood 12/04/2019 10:5 5 AM EDT 12/04/2019 Narrative [facility] - 12/05/2019 4:07 AM EDT Performed at: [address] [place] [address] [id number] Table Assembler Metal: Nick [place] MD, Phone: [phone] Patient Fasting: N us Kari [facility] BLOOD ORDERABLES Final Result [facility] [address] [place] [address], [place] [phone] [facility] [address] [place] [address], [place] [phone] from Last 3 Months or Most Recently Relevant to Health Maintenance Insurance MEDICAID Care Teams Janitor Custodian Relationship Specialty Start Date End Date Monique Saxena PA PCP - General Physician Orthopedic Physician Assistant 04/10/19
== END 2025-02-26 23:59 | disposition home or self-care (01) ==
LOC: RAD 11:06
PROVIDERS: PCP Physician Assistant; Visit Provider Obstetrics & Gynecology
DX: N85.4 Malposition of uterus (principal); N85.2 Hypertrophy of uterus; N83.02 Follicular cyst of left ovary; M62.89 Other specified disorders of muscle; R10.32 Left lower quadrant pain
CPT/HCPCS: 76830